=== PATIENT | male | born 1960 | race Caucasian/White ===

== ENCOUNTER 2023-05-03 12:06 | Emergency (ER) | payer OTHER, SELFPAY ==
--- NOTE | ~2023-05-03 | US_ITS ---
EXAMINATION: US VENOUS WITH DOPPLER UPPER EXTREMITY, LEFT CLINICAL INFORMATION: Posterior left upper arm pain COMPARISON: None available. TECHNIQUE: Ultrasound of the upper extremity is performed using compression sonography and color and pulse Doppler flow with assessment of augmentation of flow. There is also imaging and Doppler assessment of the jugular and subclavian veins. Spectral analysis with color-flow imaging is performed. FINDINGS: Respiratory variation and normal compression are noted throughout the upper extremity including the brachial, basilic, cephalic and radial and ulnar veins. There is normal flow in the internal jugular, subclavian and axillary veins. There is no visible deep or superficial thrombophlebitis. Ultrasound of the area of concern indicated by the patient in the left outer/posterior upper arm demonstrates no sonographic abnormality. US/US venous duplex UE LT IMPRESSION: No DVT demonstrated in the left upper extremity.
--- NOTE | 2023-05-03 12:16 | ED_ITS ---
HPI - General Adult General Chief complaint: Extremity Injury, Upper Stated complaint: Pain left arm Time Seen by Provider: 05/03/23 16:01 Source: patient Mode of arrival: ambulatory Limitations: no limitations History of Present Illness HPI narrative: Patient is a 62-year-old male presenting to the ED with complaint of deep pain to localized area of posterior left upper arm since this morning. States he is concerned for a blood clot. States it feels like somebody gave me a shot. Denies any new weakness, numbness, or tingling to arm or hand. Denies any chest pain, palpitations, dyspnea. Denies any known injury. MD complaint: left upper arm pain Onset (ago): hour(s) Location: left and upper extremity Radiation: non-radiation Severity: moderate Quality: stabbing Pain Consistency: constant Relieving factors: none Exacerbating factors: none Associated symptoms: denies other symptoms Treatments prior to arrival: none Related Data Allergies Allergy/AdvReac Type Severity Reaction Status Date / Time No Known Allergies Allergy Verified 05/03/23 12:16 Review of Systems 2 Review of Systems: As per HPI. Yes all other systems are reviewed and are negative Constitutional: Constitutional: Reports as per HPI [facility] Social History Social History Advance Directives: No Physical Exam ED Vital Signs: Vital Signs - 24 hr 05/03/23 12:17 Temperature 98 F Pulse Rate 94 Respiratory Rate 19 Blood Pressure 142/102 H Pulse Oximetry 96 Oxygen Delivery Method Room Air BMI result Body Mass Index 24.4 Vital signs have been reviewed and appear to be correct. Blood pressure elevated. Heart rate normal. Respiratory rate normal. Temperature normal. Oxygen saturation normal. Const General: cooperative, healthy appearing and no acute distress Orientation/consciousness: oriented to person, oriented to place, oriented to time and patient oriented x3 Limitations: no limitations HENMT Head: Yes normocephalic and Yes atraumatic Ears: external ears normal General nose exam: Normal external nose present Face and sinus: Yes face symmetric Mouth: oropharynx normal and moist mucous membranes Throat: Yes uvula midline Eyes Pupils: Equal, round and reactive pupils present Neck Neck: Yes normal visual inspection and Yes supple Resp Effort & Inspection: normal respiratory effort and able to speak in complete sentences Auscultation: clear to auscultation bilaterally Cardio Rate: regular rate Rhythm: regular rhythm Heart sounds: S1 normal heart sound present and S2 normal heart sound present GI Palpation (GI): Soft to palpation and nontender Auscultation: normoactive bowel sounds General: Yes no CVA tenderness Back/Spine/Pelvis Back: no CVA tenderness Skin General skin exam: elasticity normal and turgor normal Neuro General: oriented to person, oriented to place, oriented to time, patient oriented x3, moves all extremities, no focal motor deficits and CN's II-XI intact bilaterally Cranial nerves: Yes Equal, round and reactive pupils present Cognition (Neuro): normal cognition Extrem General: Yes full ROM, Yes no pedal edema and Yes no calf tenderness Left upper extremity: normal to inspection, full ROM, normal capillary refill and shoulder/upper arm Details: inspection abnormal, axillary nerve sensory function normal and normal ROM; no tenderness, no swelling, no ecchymosis and no unsual warmth Psych Mental Status: mental status grossly normal Affect: normal affect Thought process: Normal thought process present Medical Decision Making Medical Decision Making [facility] Narrative: Patient is a 62-year-old male presenting to the ED with complaint of deep pain to posterior left upper arm since this morning. On exam patient is awake, A+Ox3, VS WNL, afebrile, normal neurological exam without focal deficits, physical exam findings as above. Given reported symptoms and physical exam findings, initial differential includes DVT, contusion, muscle strain. Labs unremarkable. Ultrasound notable for no DVT. My interpretation is in agreement with the radiologist's interpretation. Results discussed with patient and all questions answered. Return precautions discussed. Instructed patient to follow up with PCP. Patient verbalized understanding of and agreement with plan. Differential Diagnosis Differential Diagnoses: The differential diagnosis associated with the presentation includes As per [facility]. Lab Data [facility] Lab Attestation statement: I reviewed the patient's lab results. As per [facility] 05/03/23 12:40 05/03/23 12:40 Labs: Lab Results 05/03/23 Range/Units 12:40 WBC 5.0 (4.8-10.8) X10*3/uL RBC 5.02 (4.60-5.80) X10*6/uL Hgb 13.4 L (14.0-18.0) g/dl Hct 42.8 (42.0-52.0) % MCV 85.3 (80.0-98.0) fL MCH 26.7 L (27.0-33.0) pg MCHC 31.3 (31.0-36.0) g/dl RDW 16.7 H (11.0-16.0) % Plt Count 259 (160-400) X10*3/uL MPV 10.1 (9.4-12.4) fL Immature Gran % (Auto) 0.4 (0.0-0.4) % Neut % (Auto) 55.5 (45-73) % Lymph % (Auto) 30.9 (20-40) % [place] % (Auto) 10.4 (2-11) % Eos % (Auto) 1.6 (0-4) % Baso % (Auto) 1.2 (0-2) % Lymph # (Auto) 1.6 (1.2-4.9) X10*3/uL [place] # (Auto) 0.5 (0.1-1.2) X10*3/uL Eos # (Auto) 0.1 (0.0-0.4) X10*3/uL Baso # (Auto) 0.1 (0.0-0.2) X10*3/uL Abs Immat Gran (auto) 0.02 (0.00-0.03) X10*3/uL Absolute Neuts (auto) 2.8 (2.0-8.3) x10*3/uL Absolute Nucleated RBC 0.000 (0.0-0.012) X10*3/uL Nucleated RBC % (auto) 0.0 (0.0-0.2) /100WBC PT 12.2 (11.1-13.3) SEC INR 1.0 (0.9-1.1) Sodium 141 (135-145) mmol/L Potassium 4.8 (3.3-5.1) mmol/L Chloride 106 (96-108) mmol/L Carbon Dioxide 26 (22-29) mmol/L Anion Gap 14 (12-20) BUN 13 (9-16) mg/dL Creatinine 1.08 (0.5-1.4) mg/dL Estim Creat Clear Calc 72.7 Estimated GFR > 60 Random Glucose 87 (60-115) mg/dL Calcium 9.7 (8.4-10.2) mg/dL Total Bilirubin 0.5 (0.0-1.0) mg/dL AST 35 (5-37) U/L ALT 46 H (0-40) U/L Alkaline Phosphatase 86 (39-117) U/L Total Protein 7.6 (6.5-8.0) g/dL Albumin 4.2 (3.5-5.0) g/dL Independent Interpretation I performed an independent interpretation of an: Ultrasound Interpretation: No left upper arm DVT Radiology Impression Discussion of test interpretation with radiology: I have reviewed the radiologist's reading. Radiologist Impression: US/US venous duplex UE LT IMPRESSION: No DVT demonstrated in the left upper extremity. External Record Review External record reviewed: Inpatient record, Office record and Outpatient record Discharge Plan Discharge Clinical Impression: Left upper arm pain Patient Disposition: Home, Self-Care Instructions: Arm Pain (ED) Additional Instructions: You were evaluated in the emergency department today for pain to the back of your left upper arm. Your ultrasound did not show evidence of a blood clot. Your labs were normal. We recommend you take 600 mg ibuprofen or 650 mg of Tylenol every 6 hours as needed for pain. Please follow-up with your primary care provider this week. Return to the emergency department if you develop increased swelling, worsening pain, change of color to your arm, new weakness, numbness, tingling or any other concerning symptoms.
[2023-05-03 12:17] VITALS: BP 142/102; PULSE 94; RESP 19; TEMP 36.6; O2SAT 96; BMI 24.4
[2023-05-03 12:46] LABS: MANUAL DIFF FLAG NO
[2023-05-03 12:49] LABS: Basophils Absolute Auto 0.1 X10*3/uL (0.0-0.2); Basophils Percent Auto 1.2 % (0-2); Eosinophils Absolute Auto 0.1 X10*3/uL (0.0-0.4); Eosinophils Percent Auto 1.6 % (0-4); Hematocrit 42.8 % (42.0-52.0); Hemoglobin 13.4 g/dl (14.0-18.0); Imm Gran Abs Auto 0.02 X10*3/uL (0.00-0.03); Imm Gran Pct Auto 0.4 % (0.0-0.4); Lymphocytes Absolute Auto 1.6 X10*3/uL (1.2-4.9); Lymphocytes Percent Auto 30.9 % (20-40); Mean Corpuscular HGB Conc 31.3 g/dl (31.0-36.0); Mean Corpuscular Hemoglobin 26.7 pg (27.0-33.0); Mean Corpuscular Volume 85.3 fL (80.0-98.0); Mean Platelet Volume 10.1 fL (9.4-12.4); Monocytes Absolute Auto 0.5 X10*3/uL (0.1-1.2); Monocytes Percent Auto 10.4 % (2-11); Neutrophils Absolute Auto 2.8 x10*3/uL (2.0-8.3); Neutrophils Percent Auto 55.5 % (45-73); Platelet Count 259 X10*3/uL (160-400); Red Blood Count 5.02 X10*6/uL (4.60-5.80); Red Cell Distribution Width 16.7 % (11.0-16.0)
[2023-05-03 12:59] LABS: Prothrombin Time 12.2 SEC (11.1-13.3)
[2023-05-03 13:04] LABS: Alanine Aminotransferase 46 U/L (0-40); Albumin Level 4.2 g/dL (3.5-5.0); Alkaline Phosphatase 86 U/L (39-117); Anion Gap 14 (12-20); Aspartate Amino Transferase 35 U/L (5-37); Bilirubin Total 0.5 mg/dL (0.0-1.0); Blood Urea Nitrogen 13 mg/dL (9-16); Calcium 9.7 mg/dL (8.4-10.2); Carbon Dioxide 26 mmol/L (22-29); Chloride 106 mmol/L (96-108); Creatinine Clr Calc Pharmacy 72.7; Estimated Glomerular Filt Rate > 60; Glucose Random 87 mg/dL (60-115); Potassium 4.8 mmol/L (3.3-5.1); Sodium 141 mmol/L (135-145); Total Protein 7.6 g/dL (6.5-8.0)
== END 2023-05-03 16:34 | disposition home or self-care (01) ==
PROVIDERS: Registered Nurse Emergency; Emergency Provider Emergency Medicine; PCP Internal Medicine
DX: M79.622 Pain in left upper arm (principal)
CPT/HCPCS: 36415; 80053; 85025; 85610; 93971; 99282; 99284

== ENCOUNTER 2023-06-01 14:01 | Outpatient (AMB) | payer OTHER, SELFPAY ==
[2023-06-01 14:03] VITALS: BP 132/68; PULSE 72; O2SAT 97; BMI 24.8
--- NOTE | 2023-06-01 14:03 | MHC.OFFVIS ---
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 Machine Bobbin Winder: Machine Bobbin Winder offered & declined Accompanied by: Self / Same As Patient Allergies celery Allergy (Severe, Uncoded 06/01/23 14:11) Anaphylaxis kyrgyz grapes Allergy (Severe, Uncoded 06/01/23 14:11) Anaphylaxis Medication List - Last Reconciled 06/01/23 by Yanely Jensen LPN albuterol sulfate 90 mcg/actuation 1 inh inhalation Q4-6H PRN allopurinol 300 mg PO DAILY amlodipine 2.5 mg PO DAILY epinephrine (EpiPen 2-Alan) 0.3 mg IM Q4H PRN irbesartan 300 mg PO DAILY pantoprazole 40 mg PO DAILY propranolol 10 mg PO .1x daily PRN testosterone 1 packet transdermal DAILY HPI chronic cough HPI Details Jah is a pleasant 62 year old male, former smoker with less than 10 pack year history, with underlying chronic cough, seasonal allergies and post nasal drip. He was referred by PCP for pulmonary evaluation as prior or director is not in-network. He reports symptoms started after RSV and COVID with chronic productive cough and wheezing, treated with levaquin and prednisone as well as started on Trelegy x 1 month by pulmonary. Patient denies any notable change in cough other than resolution of wheezing. CT chest from february with mild ground glass opacity of right lung, report below. He continues to report constant throat clearing. Denies dyspnea or chest tightness. He denies prior history of asthma. He reports significant seasonal allergies, on allergen immunotherapy many years ago. Uses claritin and flonase with suboptimal effect. He denies occupational exposures. [facility] Social History (Updated 06/01/23 @ 14:13 by Yanely Jensen LPN) Patient Tobacco Use Status: Former Tobacco user Tobacco use type: Cigarette Cigarette Packs Per Day: 1 Years Smoked: 10 Smoked in Last 30 Days: No Review of Systems Const Denies chills, Denies excessive sweating, Denies fever(s), Denies headache(s) and Denies night sweats Eyes Denies dry eyes, Denies irritation and Denies itchy eyes ENT Reports Normal hearing present, Denies headache(s), Denies nasal congestion, Denies nasal discharge and Denies sore throat Card Denies chest pain, Denies chest pain at rest, Denies chest pain with activity, Denies claudication, Denies leg edema, Denies dyspnea, Denies dyspnea on exertion, Denies orthopnea and Denies paroxysmal nocturnal dyspnea Resp Denies chest congestion, Denies pain on inspiration, Denies pain with cough, Denies dyspnea, Denies dyspnea on exertion, Denies stridor and Denies wheezing Musc Denies myalgias Neuro Reports Normal hearing present and Denies headache(s) Endo Denies excessive sweating Mario/Lymph Denies lymphadenopathy Aller/Immun Denies itchy eyes, Denies seasonal rhinorrhea and Denies wheezing Physical Exam Vital Signs: Last Vital Signs Pulse 72 06/01/23 14:03 BP 132/68 06/01/23 14:03 Pulse Ox 97 06/01/23 14:03 Oxygen Delivery Method Room Air 06/01/23 14:03 BMI result Body Mass Index 24.8 Const General: cooperative, healthy appearing, comfortable, no acute distress, well developed and alert Orientation/consciousness: patient oriented x3 Limitations: no limitations HEENT Head: Yes normal to inspection, Yes normocephalic and Yes atraumatic Ears: hearing grossly normal bilaterally and external ears normal Eyes General: appearance normal, both eyes and all related structures Eyelids: Yes eyelids normal Sclerae: sclerae normal EOM: EOMs intact bilaterally Neck Neck: Yes normal visual inspection and Yes no lymphadenopathy Lymphatic: no lymphadenopathy noted Chest Chest palpation & inspection: normal inspection of the chest Resp Other: persistent throat clearing throughout visit Effort & Inspection: normal respiratory effort, able to speak in complete sentences, no audible wheezes, no cough, no stridor, not tachypneic, no tripod positioning and no use of accessory muscles Auscultation: clear to auscultation bilaterally Cardio Jugular venous distension: no JVD Rate: regular rate Rhythm: regular rhythm Skin Other: warm, dry General skin exam: no rashes or lesions noted Neuro General: patient oriented x3 Cranial nerves: Yes Normal hearing present Cognition (Neuro): normal cognition Gait exam (Neuro): Normal gait present Extrem General: Yes normal to inspection, Yes capillary refill normal, Yes no clubbing, cyanosis or edema and Yes no pedal edema Psych Appearance: grossly normal and well kempt Speech and movement: Normal speech and movement present and Clear speech present Affect: normal affect Attitude: cooperative Thought process: Normal thought process present Thought content: Normal thought content present Insight: Good insight present (Psych) Judgement: Good judgement present (Psych) Results Reviewed Results Reviewed: Assessment & Plan Assessment & Plan (1) Chronic cough: Code(s): R05.3 - Chronic cough (2) Post-nasal drip: Code(s): R09.82 - Postnasal drip (3) Environmental allergies: Code(s): Z91.09 - Other allergy status, other than to drugs and biological substances (4) Multiple pulmonary nodules: Code(s): R91.8 - Other nonspecific abnormal finding of lung field Plan Jah's symptoms at this time are likely related to underlying environmental allergies and post nasal drip contributing to chronic cough. Cough with clear sputum without fevers, so infectious etiologies are less likely. Will trial ipratropium. Unfortunately, patient is leaving next week for 6 months to [place] so unable to order testing in the near future. Will order repeat chest CT to assess nodules, PFT and RAST when he returns. All questions were answered and patient is in agreement of plan. Will follow up when patient returns. Orders: Orders CT chest wo IV con 6 Months R91.1 - Solitary pulmonary nodule Complete Blood Count Auto Diff Today R05.3 - Chronic cough, Z91.09 - Other allergy status, other than to drugs and biological substances Resp Allergy Profile Region I Today Z91.09 - Other allergy status, other than to drugs and biological substances PFT pulmonary function test 6 Months R05.3 - Chronic cough Immunoglobulin E Today Z91.09 - Other allergy status, other than to drugs and biological substances Medications: New ipratropium bromide administer into each nostril 2 sprays intranasal BID 30 mL 3RF Coding Level of Care Code New Pt Level 4 (20774) Diagnoses Chronic cough R05.3 Post-nasal drip R09.82 Environmental allergies Z91.09 Multiple pulmonary nodules R91.8
== END 2023-06-01 14:38 | disposition home or self-care (01) ==
PROVIDERS: PCP Internal Medicine; Referring Provider Internal Medicine; Visit Provider Nurse Practitioner Family
DX: R05.3 Chronic cough (principal); R09.82 Postnasal drip; Z91.09 Other allergy status, other than to drugs and biological substances; R91.8 Other nonspecific abnormal finding of lung field
CPT/HCPCS: 99204

== ENCOUNTER → 2023-06-01 14:01 | Outpatient (BNVA) | payer OTHER, SELFPAY | PROVIDERS: PCP Internal Medicine; Referring Provider Internal Medicine; Visit Provider Nurse Practitioner Family ==

== ENCOUNTER 2023-12-24 07:36 | Outpatient (REF) | payer OTHER, SELFPAY ==
--- NOTE | ~2023-12-24 | CT_ITS ---
EXAMINATION: CT CHEST WITHOUT CONTRAST CLINICAL INFORMATION: Solitary pulmonary nodule. COMPARISON: No prior available. TECHNIQUE: Multidetector volumetric CT imaging of the chest was done. Axial MIP volume rendering provided. Sagittal and coronal reformatted images were obtained. This CT examination was performed using dose optimization techniques as appropriate, variously including the following: *Automated exposure control *Adjustment of mA and/or kV according to patient size (this includes techniques or standardized protocols for targeted exams where dose is matched to indication/reason for exam; i.e. extremities or head) *Use of iterative reconstruction technique DLP: 134 mGy-cm FINDINGS: PULMONARY NODULES: -Average diameter 4 mm nodule abutting the minor fissure in the inferior most right upper lobe (series 7, image 280), most likely an incidental intrapulmonary lymph node. -No additional nodules seen. -No new or enlarging nodule. LUNGS: -Lungs appear clear bilaterally. No abnormal consolidative opacities or groundglass opacities. -No pleural effusion or pleural mass -Small airways normal. -Central airways patent and normal. MEDIASTINUM: -There is a moderate to large sized paraesophageal hiatus hernia. This contains the majority of the fundus of the stomach. -Mediastinum is otherwise normal. CORONARY ARTERY CALCIFICATION: None visualized on this study. PLEURA: There is no pleural effusion. No pleural mass or thickening. AXILLA/CHEST WALL: No masses or lymphadenopathy. UPPER ABDOMEN: -Mild fatty infiltration of liver. -Moderate to large paraesophageal hiatus hernia. -Mild nonspecific perirenal stranding. OSSEOUS STRUCTURES: Unremarkable. CT/CT chest wo IV con IMPRESSION: 1. No prior available for comparison. 2. Inferior right upper lobe 4 mm average diameter nodule subjacent to the minor fissure, most likely an intrapulmonary lymph node. No additional or suspicious pulmonary nodules. Correlation with older exams recommended. 3. No active pulmonary disease. 4. Moderate to large sized paraesophageal hiatus hernia. Otherwise normal mediastinal structures. 5.. Fatty infiltration of the liver. Fleischner guidelines were followed. Electronically signed by: Tucker Rodrigues MD 02/20/2024 02:39 PM [facility]
== END 2023-12-24 07:37 | disposition home or self-care (01) ==
LOC: HO.CT 07:36
PROVIDERS: PCP Internal Medicine; Visit Provider Nurse Practitioner Family
DX: R91.1 Solitary pulmonary nodule (principal)
CPT/HCPCS: 71250

== ENCOUNTER → 2023-12-24 07:41 | Outpatient (BNV) | payer OTHER, SELFPAY | PROVIDERS: PCP Internal Medicine; Visit Provider Radiology Diagnostic Radiology | DX: R91.1 Solitary pulmonary nodule (principal) | CPT/HCPCS: 71250 ==

== ENCOUNTER 2023-12-28 11:29 | Outpatient (REF) | payer OTHER, SELFPAY ==
--- NOTE | ~2023-12-28 | XR_ITS ---
EXAMINATION: XR SHOULDER, RIGHT CLINICAL INFORMATION: Right shoulder pain COMPARISON: None available. TECHNIQUE: AP external rotation, Grashey, scapular Y, and axillary views of the right shoulder. FINDINGS: No fracture or malalignment. No significant degenerative findings. Incidental small bone island within the humeral head and distal scapula. No suspicious soft tissue calcification. XR/XR shoulder RT min 2V IMPRESSION: Normal right shoulder. Electronically signed by: Kirk Beckham MD 12/28/2023 03:59 PM EDT
== END 2023-12-28 11:30 | disposition home or self-care (01) ==
LOC: HO.XRAY 11:29
PROVIDERS: Visit Provider Internal Medicine
DX: M25.511 Pain in right shoulder (principal)
CPT/HCPCS: 73030

== ENCOUNTER 2024-01-17 10:52 | Outpatient (AMB) | payer OTHER, SELFPAY ==
--- NOTE | 2024-01-17 11:10 | A.OFFVIS_ITS ---
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 Patient reports his pain has been present for about 2 years after having a covid injection. He had received electrical pulse therapy, which did not help. After some time his pain improved. His pain has no returned and is making snapping noises. His pain radiates from his shoulder to his elbow. He has pain with ROM. Denies injury. 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 He has not had any injury however he believes his pain started after having a covid injection. He reports he has tried electric pulse therapy that provided him relief for about 3 months however his pain returned. He currently states he has pain in his shoulder that radiates down to his elbow. His pain is aggravated with ROM, reaching and lifting items. He also reports hearing snapping noises from his shoulder. He denies any numbness or tingling. 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 Tenderness over the bicipital groove and along the deltoid region of the shoulder. Forward flexion to 175, external rotation to 90, internal rotation to S1. 5/5 RTC strength. Positive O?Briens. NVI. Results Reviewed Results Reviewed: XR shoulder RT min 2V IMPRESSION: Normal right shoulder. Assessment & Plan Assessment & Plan (1) Biceps tendonitis on right: Code(s): M75.21 - Bicipital tendinitis, right shoulder Category: Medical Plan We discussed options which include PT, NSAIDs and injections. The patient will defer on the injection today and proceed with PT and NSAIDs. He was sent to pain management for evaluation and bicep tendon injection under fluoroscopy. If he continues to have pain he can return to office to meet with Dr. Goldsmith to discuss further treatment options. He was instructed to bring a copy of MRI disc to the appointment. Orders: Orders PT Evaluation and Treatment Today M75.21 - Bicipital tendinitis, right shoulder Referrals Pain Management Referral M75.21 - Bicipital tendinitis, right shoulder Patient Instructions: Scribed for Maritza Gonsales PA-C, by Ascencion Monae medical assistant prn, on 01/17/2024 at 11:00 AM EST.? I, Maritza Gonsales PA-C, have personally reviewed and agree with the information entered by the scribe. Coding Level of Care Code New Pt Level 3 (31464) Complex EM visit Add On G2211 Diagnoses Biceps tendonitis on right M75.21
[2024-01-17 11:20] VITALS: BMI 24.8
== END 2024-01-17 14:32 | disposition home or self-care (01) ==
LOC: HO.HOS 10:53
PROVIDERS: PCP Internal Medicine; Visit Provider Physician Assistant
DX: M75.21 Bicipital tendinitis, right shoulder (principal)
CPT/HCPCS: 99203

== ENCOUNTER → 2024-01-17 10:52 | Outpatient (BNVA) | payer OTHER, SELFPAY | PROVIDERS: PCP Internal Medicine; Visit Provider Physician Assistant ==

== ENCOUNTER 2024-01-25 09:37 | Outpatient (REF) | payer OTHER, SELFPAY ==
--- NOTE | 2024-01-25 09:44 | PFT_ITS ---
Flows: FEV1: 107 % of predicted at 3.66 L FVC: 101 % of predicted at 4.48 L FEV1/FVC: 82 % Bronchodilator response: No bronchodilator testing performed Volumes: Total lung capacity: 84 % of predicted at 5.88 L Residual volume: 64 % of predicted at 1.40 L Slow vital capacity: 92 % of predicted at 4.48 L Expiratory reserve volume: 58 % of predicted at 0.73 L Diffusion capacity: Normal Impression: No obstructive or restrictive ventilatory defect. Bronchodilator testing not performed. MTDD
== END 2024-01-25 09:38 | disposition home or self-care (01) ==
LOC: HO.RESP 09:37
PROVIDERS: PCP Internal Medicine; Visit Provider Nurse Practitioner Family
DX: R05.3 Chronic cough (principal)
CPT/HCPCS: 94010; 94640; 94727; 94729

== ENCOUNTER → 2024-01-25 09:44 | Outpatient (BNV) | payer OTHER, SELFPAY | PROVIDERS: PCP Internal Medicine; Visit Provider Internal Medicine Pulmonary Disease | DX: R05.3 Chronic cough (principal) | CPT/HCPCS: 94060; 94727; 94729 ==

== ENCOUNTER 2024-02-01 08:52 | Outpatient (RCR) | payer OTHER, SELFPAY ==
--- NOTE | 2024-02-01 09:52 | MHC.PT.EP ---
[facility] [place] Office [place] Office [place] Office [address] Gema Haider [address] [phone] F: [phone] F: [phone] F: [phone] F: [phone] Physical Therapy Plan of Care Date of Evaluation: 02/01/24 Date of Surgery: Diagnosis: R bicipital tendonitis Assessment: 63 y/o R-hand dominant male referred to PT wtih bicipital tendonitis. S/s consistent with referring and dx and ?supraspinatus tendinopathy as well resulting in pain and difficulty with reaching, lifting coffee cup, reaching behind back and lifting. Examination shows TTP biceps/supraspiantus tendons, rounded forward posture, decreased thoracic mobility, decreased R shoulder ROM, decreased R shoulder strength. Recommend PT 2x/week for 5 weeks however Pt would like to attend only this visit and discussed keeping chart open for 30 days in case he wants to f/u with HEP progression or has questions. Distributed extensive HEP and reviewed importance of progressing to tolerance. Frequency and Duration: The patient will be seen Short Term Goals: develop HEP = met Cell Pourer Goals: Keep chart open for 30 days in case pt wants to f/u with exercise progression or has questions Treatment Plan: Modalities to reduce pain, spasms and effusion. Manual therapy to restore motion and function. Therapeutic exercise to improve strength and flexibility. Neuromuscular re-education for posture and balance. Therapeutic activities to return to functional activities of daily living. Electronically signed by: Carlee Mclean PT Please sign and return to therapist. Thank you for your referral.
--- NOTE | 2024-03-07 07:31 | MHC.PT.DC ---
[facility] [place] Office [place] Office [place] Office [address] Gema Haider [address] [phone] F: [phone] F: [phone] F: [phone] F: [phone] Physical Therapy Discharge Report Diagnosis: R bicipital tendonitis Date of Surgery: Date of Evaluation: 02/01/24 Date of Discharge: 03/07/24 Treatments to Date: 1 Cancellations to Date: 0 No Shows to Date: 0 Discharge Status: Independent with HEP Discharge Summary: Pt only wanted to attend initial evaluation and perform HEP independently. Kept chart open for 30 days in case he had questions or wanted to progress. At this time, will now close chart Electronically signed by: Carlee Mclean PT Please sign and return to therapist. Thank you for your referral.
== END 2024-03-07 07:31 | disposition home or self-care (01) ==
LOC: HO.PTCHIC 08:52
PROVIDERS: PCP Internal Medicine; Visit Provider Physician Assistant
DX: M75.21 Bicipital tendinitis, right shoulder (principal)
CPT/HCPCS: 97110; 97161

== ENCOUNTER 2024-03-04 15:05 | Outpatient (AMB) | payer OTHER, SELFPAY ==
--- NOTE | 2024-03-04 14:16 | A.OFFVIS_ITS ---
Vital Signs 03/04/24 15:15 Height 5 ft 9 in Weight 173 lb BMI 25.5 BP 126/88 Blood Pressure Location Rt brachial Position Sitting Pulse 97 Pulse Source Pulse Oximeter Pulse Oximetry (%) 95 Oxygen Delivery Method Room Air Intake Visit Reasons: chronic cough/ CT FU Allergies celery Allergy (Severe, Uncoded 03/04/24 15:17) Anaphylaxis bermudian grapes Allergy (Severe, Uncoded 03/04/24 15:17) Anaphylaxis HPI HPI chronic cough/ CT FU: Details: Jah is a pleasant 63 year old male, former smoker with less than 10 pack year history, with underlying chronic cough, seasonal allergies and post nasal drip. He was initiallyy referred by PCP for pulmonary evaluation for persistent dry cough, occasionally productive since randy RSV and COVID. He has been trialed on trelelgy, prednisone and levaquin with minimal change in symptoms. [place] and presents today to review chest CT/PFT. He continues with persistent throat clearing, post nasal drip and chronic cough. [facility] Social History Patient Tobacco Use Status: Former Tobacco user Tobacco use type: Cigarette Cigarette Packs Per Day: 1 Years Smoked: 10 Current occupational status: employed Current occupation: server software engineer, right hand dominant Review of Systems Const Denies chills, Denies excessive sweating, Denies fever(s), Denies headache(s) and Denies night sweats Eyes Denies dry eyes and Denies irritation ENT Reports Normal hearing present, Denies headache(s), Denies nasal congestion, Denies nasal discharge and Denies sore throat Card Denies chest pain, Denies chest pain at rest, Denies chest pain with activity, Denies claudication, Denies leg edema, Denies dyspnea, Denies dyspnea on exertion, Denies orthopnea and Denies paroxysmal nocturnal dyspnea Resp Denies chest congestion, Reports cough, Denies hemoptysis, Denies pain on inspiration, Denies pain with cough, Denies dyspnea, Denies dyspnea on exertion, Denies stridor and Denies wheezing Musc Denies myalgias Neuro Reports Normal hearing present and Denies headache(s) Endo Denies excessive sweating Mario/Lymph Denies lymphadenopathy Aller/Immun Denies seasonal rhinorrhea and Denies wheezing Physical Exam Vital Signs: Last Vital Signs Pulse 97 03/04/24 15:15 BP 126/88 03/04/24 15:15 Pulse Ox 95 03/04/24 15:15 Oxygen Delivery Method Room Air 03/04/24 15:15 BMI result Body Mass Index 25.5 Const General: cooperative, healthy appearing, comfortable, no acute distress, well developed and alert Orientation/consciousness: patient oriented x3 Limitations: no limitations HEENT Head: Yes normal to inspection, Yes normocephalic and Yes atraumatic Ears: hearing grossly normal bilaterally and external ears normal Eyes General: appearance normal, both eyes and all related structures Eyelids: Yes eyelids normal Sclerae: sclerae normal EOM: EOMs intact bilaterally Neck Neck: Yes normal visual inspection and Yes no lymphadenopathy Lymphatic: no lymphadenopathy noted Chest Chest palpation & inspection: normal inspection of the chest Resp Other: persistent throat clearing throughout visit Effort & Inspection: normal respiratory effort, able to speak in complete sen tences, no audible wheezes, no cough, no stridor, not tachypneic, no tripod positioning and no use of accessory muscles Auscultation: clear to auscultation bilaterally Cardio Jugular venous distension: no JVD Rate: regular rate Rhythm: regular rhythm Skin Other: warm, dry General skin exam: no rashes or lesions noted Neuro General: patient oriented x3 Cranial nerves: Yes Normal hearing present Cognition (Neuro): normal cognition Gait exam (Neuro): Normal gait present Extrem General: Yes normal to inspection, Yes capillary refill normal, Yes no clubbing, cyanosis or edema and Yes no pedal edema Psych Appearance: grossly normal and well kempt Speech and movement: Normal speech and movement present and Clear speech present Affect: normal affect Attitude: cooperative Thought process: Normal thought process present Thought content: Normal thought content present Insight: Good insight present (Psych) Judgement: Good judgement present (Psych) Results Reviewed Results Reviewed: [address] [address] [address] Scan Report Signed Patient: Jah Christianson MR#: [id number] : 1960 Acct:[id number] Age/Sex: 63 / M ADM Date: 12/24/23 Loc: HO.CT Attending Dr: Claudia Haynes NP Ordering Physician: Claudia Haynes NP Date of Service: 12/24/23 Procedure(s): CT chest wo IV con Accession Number(s): [id number] cc: Jah Storey MD; Claudia Haynes NP~ EXAMINATION: CT CHEST WITHOUT CONTRAST CLINICAL INFORMATION: Solitary pulmonary nodule. COMPARISON: No prior available. TECHNIQUE: Multidetector volumetric CT imaging of the chest was done. Axial MIP volume rendering provided. Sagittal and coronal reformatted images were obtained. This CT examination was performed using dose optimization techniques as appropriate, variously including the following: *Automated exposure control *Adjustment of mA and/or kV according to patient size (this includes techniques or standardized protocols for targeted exams where dose is matched to indication/reason for exam; i.e. extremities or head) *Use of iterative reconstruction technique DLP: 134 mGy-cm FINDINGS: PULMONARY NODULES: -Average diameter 4 mm nodule abutting the minor fissure in the inferior most right upper lobe (series 7, image 280), most likely an incidental intrapulmonary lymph node. -No additional nodules seen. -No new or enlarging nodule. LUNGS: -Lungs appear clear bilaterally. No abnormal consolidative opacities or groundglass opacities. -No pleural effusion or pleural mass -Small airways normal. -Central airways patent and normal. MEDIASTINUM: -There is a moderate to large sized paraesophageal hiatus hernia. This contains the majority of the fundus of the stomach. -Mediastinum is otherwise normal. CORONARY ARTERY CALCIFICATION: None visualized on this study. PLEURA: There is no pleural effusion. No pleural mass or thickening. AXILLA/CHEST WALL: No masses or lymphadenopathy. UPPER ABDOMEN: -Mild fatty infiltration of liver. -Moderate to large paraesophageal hiatus hernia. -Mild nonspecific perirenal stranding. OSSEOUS STRUCTURES: Unremarkable. CT/CT chest wo IV con IMPRESSION: 1. No prior available for comparison. 2. Inferior right upper lobe 4 mm average diameter nodule subjacent to the minor fissure, most likely an intrapulmonary lymph node. No additional or suspicious pulmonary nodules. Correlation with older exams recommended. 3. No active pulmonary disease. 4. Moderate to large sized paraesophageal hiatus hernia. Otherwise normal mediastinal structures. 5.. Fatty infiltration of the liver. Fleischner guidelines were followed. 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 Assessment & Plan (1) Chronic cough: Code(s): R05.3 - Chronic cough Category: Medical (2) Post-nasal drip: Code(s): R09.82 - Postnasal drip Category: Medical (3) Environmental allergies: Code(s): Z91.09 - Other allergy status, other than to drugs and biological substances Category: Medical (4) Multiple pulmonary nodules: Code(s): R91.8 - Other nonspecific abnormal finding of lung field Category: Medical (5) Paraesophageal hernia: Code(s): K44.9 - Diaphragmatic hernia without obstruction or gangrene Category: Medical Plan Reviewed PFT which revealed normal spirometry, lung volumes normal and normal DLCO. CT chest revealed moderate to large paraesophageal hernia with multiple scattered pulmonary nodules. Will repeat chest CT in one year to assess stability, if no changes then no need for further imaging. In regards to hernia, he is going to undergo repair in March in [place], which may be contributing to cough. He currently denies any reflux symptoms. He continues to report significant post nasal drip and seasonal allergies, trialed ipratriopium nasal spray with minimal effect, Encouraged patient to trial antihistamine. Consider allergy referral. All questions were answered and patient is in agreement of plan. Will follow up after patient undergoes hernia repair or sooner if needed. Orders: Orders CT chest wo IV con 10 Months R91.8 - Other nonspecific abnormal finding of lung field Coding Level of Care Code Est Pt Level 4 (34283) Diagnoses Chronic cough R05.3 Post-nasal drip R09.82 Environmental allergies Z91.09 Multiple pulmonary nodules R91.8 Paraesophageal hernia K44.9
[2024-03-04 15:15] VITALS: BP 126/88; PULSE 97; O2SAT 95; BMI 25.5
== END 2024-03-04 15:44 | disposition home or self-care (01) ==
PROVIDERS: PCP Internal Medicine; Visit Provider Nurse Practitioner Family
DX: R05.3 Chronic cough (principal); R09.82 Postnasal drip; Z91.09 Other allergy status, other than to drugs and biological substances; R91.8 Other nonspecific abnormal finding of lung field; K44.9 Diaphragmatic hernia without obstruction or gangrene
CPT/HCPCS: 99214

== ENCOUNTER 2024-04-20 19:03 | Emergency (ER) | payer OTHER, SELFPAY ==
--- NOTE | ~2024-04-20 | CT_ITS ---
CLINICAL HISTORY: recent hiatal hernia repair pleuritic chest pain CT angiography chest with contrast. 3D Postprocessing. Comparison: CT/MS/SR - CT CHEST WO IV CON - 12/24/23 07:57 EDT Findings: Moderately severe cardiomegaly. The thoracic aorta is dilated in caliber in the ascending portion measuring 4.0 cm Main pulmonary artery measures 3.1 cm, mildly enlarged. No pulmonary artery embolus. Interval repair of hiatal hernia. Bibasilar atelectasis. Trace bilateral pleural effusions. There are trace bilateral pneumothoraces, series 8, image 46 and series 8, image 52. The upper abdomen is unremarkable. The bones are intact. IMPRESSION: 1. No pulmonary embolus. 2. Trace bilateral pneumothoraces. Trace bilateral pleural effusions. Bibasilar atelectasis. 3. Dilated ascending thoracic aorta measuring 4.0 cm in diameter. 4. Enlarged pulmonary artery, a finding that can be associated with pulmonary artery hypertension. This document has been electronically signed by: Grupo Forde MD on 04/20/2024 22:26:26
--- NOTE | ~2024-04-20 | XR_ITS ---
CLINICAL HISTORY: 6am REPEAT chest xray in AM 2 view chest x-ray Comparison: CT/SR - CT ANGIO CHEST PE PROTOCOL - 04/20/24 21:40 EST Findings: Linear atelectasis in the right lung. Left basilar atelectasis and possibly a small effusion. No pneumothorax. Normal heart size. IMPRESSION: 1. Hypoventilatory changes. Possible small left effusion. This document has been electronically signed by: Autumn Peralta MD on 04/21/2024 06:11:57
[2024-04-20 19:48] VITALS: BP 148/104; PULSE 73; RESP 20; TEMP 36.8; O2SAT 95; BMI 24.4
--- NOTE | 2024-04-20 19:48 | ECG_ITS ---
Test Reason : SOB Blood Pressure : */* mmHG Vent. Rate : 68 BPM Atrial Rate : 68 BPM P-R Int : 178 ms QRS Dur : 92 ms QT Int : 392 ms P-R-T Axes : 20 24 -1 degrees QTcB Int : 416 ms Normal sinus rhythm Anterior infarct , age undetermined Abnormal ECG No previous ECGs available Referred By: Yang Vaughn Electronically Signed By: Regino Pitts
--- NOTE | 2024-04-20 19:49 | ED_ITS ---
HPI - General Adult General Chief complaint: General Medical Stated complaint: had surgery/fells pain in lungs when he breaths Time Seen by Provider: 04/20/24 20:59 Source: patient and old records reviewed Mode of arrival: ambulatory Limitations: no limitations History of Present Illness ED Provider: BELLA OWENS narrative: 63 yo male with PMH of HTN, hiatal hernia s/p repair at [facility] with Dr. Gustafson on Sunday. He has been doing okay but yesterday started to feel a R sided lower lung pain and back pain it hurts to breathe. He has no fevers, cough, n/v. His incisions look good. He has no hx of VTE but notes his two sisters are on thinners for blood clots. He otherwise feels fine MD complaint: pleuritic lung pain Onset (ago): day(s) (2) Location: chest Radiation: back Severity: moderate Quality: stabbing Pain Consistency: intermittent Relieving factors: none Exacerbating factors: other (inspiration) Associated symptoms: denies other symptoms Treatments prior to arrival: none Related Data Home Medications ?Medication ?Instructions ?Recorded ?Confirmed allopurinol 300 mg tablet 300 mg PO DAILY 06/01/23 01/31/24 amlodipine 2.5 mg tablet 2.5 mg PO DAILY 06/01/23 01/31/24 epinephrine 0.3 mg/0.3 mL 0.3 mg IM Q4H PRN 06/01/23 01/31/24 injection, auto-injector (EpiPen 2-Alan) irbesartan 300 mg tablet 300 mg PO DAILY 06/01/23 01/31/24 propranolol 10 mg tablet 10 mg PO .1x daily PRN 06/01/23 01/31/24 testosterone 1 % (25 mg/2.5 gram) 1 packet transdermal DAILY 06/01/23 01/31/24 transdermal gel packet Previous Rx's ?Medication ?Instructions ?Recorded diclofenac potassium 50 mg tablet 50 mg PO DAILY PRN pain #30 tabs 01/31/24 morphine 15 mg immediate release 15 mg PO Q6H PRN pain #14 tabs 04/21/24 tablet Allergies Allergy/AdvReac Type Severity Reaction Status Date / Time celery Allergy Severe Anaphylaxis Uncoded 04/20/24 19:49 cypriot grapes Allergy Severe Anaphylaxis Uncoded 04/20/24 19:49 Review of Systems 2 Review of Systems: Constitutional : No Weight loss, No Fever, No Chills ENT/Mouth : No sore throat, No Rhinorrhea Eyes: No Eye Pain, No Swelling Cardiovascular : pos Chest Pain, no SOB, no Dyspnea on Exertion, No Orthopnea, No Edema, No Palpitations Respiratory : No Cough, No Sputum Gastrointestinal : pos Nausea, No Vomiting, No Diarrhea, No abdominal Pain, No Hematochezia, No Melena Genitourinary : No Dysuria, No Urinary Frequency Musculoskeletal : No joint pain, No Myalgias, No Joint Swelling Skin : No Skin Lesions, No rash Neuro : No Weakness, No Numbness, No Dizziness, No Headache All other systems reviewed and are negative [facility] Past Medical History Attestation statement: The following information was validated with the patient. Source: old records reviewed Medical History (Updated 04/21/24 @ 08:58 by Nirav Dumont MD) Multiple pulmonary nodules Paraesophageal hernia Social History Social History Patient Tobacco Use Status: Former Tobacco user Tobacco use type: Cigarette Cigarette Packs Per Day: 1 Years Smoked: 10 Current occupational status: employed Current occupation: mainframe software developer, right hand dominant Physical Exam ED Vital Signs: Vital Signs - 24 hr 04/20/24 19:48 04/20/24 21:15 04/20/24 22:23 Temperature 98.2 F 98.1 F Pulse Rate 73 68 72 Respiratory Rate 20 16 16 Blood Pressure 148/104 H 159/101 H 154/98 H Pulse Oximetry 95 94 90 L Oxygen Delivery Method Room Air Room Air Room Air Oxygen Flow Rate 04/20/24 22:26 04/21/24 05:41 04/21/24 07:50 Temperature 97.8 F Pulse Rate 76 76 Respiratory Rate 16 16 Blood Pressure 117/88 Pulse Oximetry 94 93 Oxygen Delivery Method Nasal Cannula Nasal Cannula Oxygen Flow Rate 2 2 04/21/24 09:11 Temperature 98.1 F Pulse Rate 78 Respiratory Rate 20 Blood Pressure 137/68 Pulse Oximetry 94 Oxygen Delivery Method Room Air Oxygen Flow Rate BMI result Body Mass Index 24.4 Appearance: Alert. Oriented X3. No acute distress. Eyes: Pupils equal, round and reactive to light. ENT: Pharynx normal. Neck: Normal inspection. Neck supple. CVS: Normal heart rate and rhythm. Pulses normal. Respiratory: No respiratory distress. Breath sounds normal. Abdomen: Soft and nontender. incisions are c/d/i Skin: Skin warm and dry. Normal skin color. Normal skin turgor. Extremities: No lower extremity edema. No calf ttp Neuro: Oriented X 3. No motor deficit. No sensory deficit. CN2-12 intact Course Course Course Narrative: RME: 63 yold male recent hernia surgery this past sunday presents to the ED for right-sided chest pain and pleurisy. Patient has strong family history of PE/DVT. Patient O2 sats stable. Patient informed not to leave the waiting room. Labs EKG ordered D-dimer ordered. Patient informed immediately want to do chest CTA. Reevaluation(s) Reevaluation #1: signed out to Dr. Alvarado pending CXR in AM incentive spirometer used Reevaluation #2: Dr. Dumont: This patient was signed out to me by the overnight emergency physician. The patient is a 63-year-old male who had hiatal hernia surgery 3 days ago on Sunday at [facility] by Dr. Mo Perez. The patient has been discharged from the hospital on Sunday. Yesterday he had increasing pleuritic pain and came to the emergency room. He had a CT that showed no pulmonary embolism but did show trace bilateral pneumothoraces and pleural effusions. He was kept in the emergency room overnight because he seemed to have an oxygen requirement. This morning he was given a dose of ketorolac and IV acetaminophen. He was given a DuoNeb updraft. His oxygen saturations have improved. My overall impression is that I think the the patient is having fairly unremarkable postoperative pain and needs pain control and pulmonary toilet. I think he may be discharged. I have sent a prescription for morphine tablets that he may use instead of the tramadol tablets that were originally prescribed for him. I was able to contact his surgeon in [place] and update him on the patient's course in the emergency room. Time: 09:02 Medications Administered Discontinued Medications Generic Name Dose Route Start Last Admin Trade Name Freq PRN Reason Stop Dose Admin Albuterol/Ipratropium 3 ml 04/21/24 07:14 04/21/24 07:49 Albuterol/Iprat 2.5/0.5mg 3 Ml Ampul.Neb INHALE 04/21/24 07:15 3 ml ONCE ONE Administration Acetaminophen 1,000 mg in 100 mls @ 400 mls/hr 04/21/24 07:14 04/21/24 08:23 Ofirmev IV 04/21/24 07:28 Infused ONCE ONE Infusion Iohexol 65 ml 04/20/24 21:56 04/20/24 21:56 Iohexol 350 Mg/Ml 100 Ml Infus..Btl IV 04/20/24 21:57 65 ml ONCE ONE Administration Ketorolac Tromethamine 10 mg 04/21/24 07:14 04/21/24 07:48 Ketorolac Tromethamine 15 Mg/Ml Vial IVPUSH 04/21/24 07:15 10 mg ONCE ONE Administration Morphine Sulfate 4 mg 04/21/24 05:52 04/21/24 07:04 Morphine Sulfate 4 Mg/Ml Cartridge IVPUSH 04/21/24 05:53 Not Given ONCE STA Protocol Medical Decision Making Medical Decision Making [facility] Narrative: 63 yo male with PMH of HTN, hiatal hernia s/p repair at [facility] on Sunday now with pleuritic R chest and back pain but no associated cough, fevers, dyspnea. His incisions are well healing. At this time will obtain labs, EKG, CTA for PE/effusion. Possible VTE vs pleurisy. Differential Diagnosis Differential Diagnoses: The differential diagnosis associated with the presentation includes pleurisy, effusion, VTE Admission/Observation Consideration of admission/observation: Escalation of care including admission/observation considered hold over night for repeat CXR physician observatoin started at 1049pm signed out to Dr. Alvarado Consult Healthcare Provider Management of the patient was discussed with: Pet Caretaker (discussed with Dr. Mitchell ) Stephen hold til AM repeat CXR Lab Data [facility] Lab Attestation statement: I reviewed the patient's lab results. 04/20/24 20:46 04/20/24 20:46 Labs: Lab Results 04/20/24 Range/Units 20:46 WBC 8.8 (4.8-10.8) X10*3/uL RBC 5.52 (4.60-5.80) X10*6/uL Hgb 17.3 D (14.0-18.0) g/dl Hct 50.8 (42.0-52.0) % MCV 92.0 (80.0-98.0) fL MCH 31.3 (27.0-33.0) pg MCHC 34.1 (31.0-36.0) g/dl RDW 14.8 (11.0-16.0) % Plt Count 268 (160-400) X10*3/uL MPV 10.1 (9.4-12.4) fL Immature Gran % (Auto) 0.3 (0.0-0.4) % Neut % (Auto) 62.9 (45-73) % Lymph % (Auto) 23.8 (20-40) % Marinette % (Auto) 9.6 (2-11) % Eos % (Auto) 2.6 (0-4) % Baso % (Auto) 0.8 (0-2) % Lymph # (Auto) 2.1 (1.2-4.9) X10*3/uL Marinette # (Auto) 0.9 (0.1-1.2) X10*3/uL Eos # (Auto) 0.2 (0.0-0.4) X10*3/uL Baso # (Auto) 0.1 (0.0-0.2) X10*3/uL Abs Immat Gran (auto) 0.03 (0.00-0.03) X10*3/uL Absolute Neuts (auto) 5.5 (2.0-8.3) x10*3/uL Absolute Nucleated RBC 0.000 (0.0-0.012) X10*3/uL Nucleated RBC % (auto) 0.0 (0.0-0.2) /100WBC PT 10.8 L (10.9-12.4) SEC INR 0.9 (0.9-1.1) APTT 30.2 (26.0-36.8) SEC D-Dimer High Sensitivty 615 NG/ML Hold Blue Top Cancelled Sodium 140 (135-145) mmol/L Potassium 4.1 (3.3-5.1) mmol/L Chloride 103 (96-108) mmol/L Carbon Dioxide 25 (22-29) mmol/L Anion Gap 16 (12-20) BUN 12 (9-16) mg/dL Creatinine 0.86 (0.5-1.4) mg/dL Estim Creat Clear Calc 90.2 Estimated GFR > 60 Random Glucose 87 (60-115) mg/dL Calcium 9.3 (8.4-10.2) mg/dL Total Bilirubin 0.4 (0.0-1.0) mg/dL AST 36 (5-37) U/L ALT 73 H (0-40) U/L Alkaline Phosphatase 88 (39-117) U/L Troponin I High Sens < 2.7 (<3.5-35.0) ng/L B-Natriuretic Peptide 69 (<100) pg/mL Total Protein 7.8 (6.5-8.0) g/dL Albumin 4.3 (3.5-5.0) g/dL Influenza Type A (PCR) NEGATIVE (Negative) Influenza Type B (PCR) NEGATIVE (Negative) RSV RNA Qual (PCR) NEGATIVE (Negative) SARS-CoV-2 RNA (RT-PCR) NEGATIVE (Negative) Independent Interpretation I performed an independent interpretation of an: EKG and CT Scan (effusions small PTX) Interpretation: Rate: 68 Rhythm: NSR Coolidge: normal Normal P waves. Normal PROMISE. Normal QRS complex. ST T wave : normal no ERI qTC: 416 prior studies: none The study has been interpreted contemporaneously by me. . Radiology Impression Discussion of test interpretation with radiology: I have reviewed the radiologist's reading. External Record Review External record reviewed: Outpatient record Discharge Plan Discharge Clinical Impression: Chest pain, pleuritic, Post-operative pain Patient Disposition: Still a Patient Instructions: How to Use an Incentive Spirometer (ED) Additional Instructions: For pain control you may take 2 extra-strength acetaminophen (Tylenol) up to 3 times a day. This is a daily maximal dosage of 3000 mg. I believe you were previously prescribed tramadol for pain. If you find the tramadol helpful you may continue using the tramadol. However if the tramadol is not helping you I have sent a prescription for morphine tablets to your pharmacy which you can use instead. Please try to use the incentive spirometer every hour to help keep your lungs fully expanded. Please stay in touch with your surgeon for additional advice over the phone as needed. If you get significantly worse contact your surgeon or return to the emergency department. Prescriptions: New morphine 15 mg tablet 15 mg PO Q6H PRN (Reason: pain) Qty: 14 0RF Rx Instructions: Partial Fill upon patient request. No Action allopurinol 300 mg tablet 300 mg PO DAILY amlodipine 2.5 mg tablet 2.5 mg PO DAILY epinephrine [EpiPen 2-Alan] 0.3 mg/0.3 mL auto-injector 0.3 mg IM Q4H PRN irbesartan 300 mg tablet 300 mg PO DAILY testosterone 1 % (25 mg/2.5gram) gel in packet 1 packet transdermal DAILY propranolol 10 mg tablet 10 mg PO .1x daily PRN diclofenac potassium 50 mg tablet 50 mg PO DAILY PRN (Reason: pain) Qty: 30 1RF Rx Instructions: Take with food, do not take with any other nonsteroidal anti-inflammatory medications. Referrals: Jah Storey MD [Primary Care Provider] - (Status post hiatal hernia surgery) Interventions: ED Discharge Assessment Last Done: 04/21/24 09:11 Discharge Date/Time: 04/21/24 09:15 Print Language: Vincentian
[2024-04-20 20:51] LABS: MANUAL DIFF FLAG NO
[2024-04-20 20:53] LABS: Basophils Absolute Auto 0.1 X10*3/uL (0.0-0.2); Basophils Percent Auto 0.8 % (0-2); Eosinophils Absolute Auto 0.2 X10*3/uL (0.0-0.4); Eosinophils Percent Auto 2.6 % (0-4); Hematocrit 50.8 % (42.0-52.0); Hemoglobin 17.3 g/dl (14.0-18.0); Imm Gran Abs Auto 0.03 X10*3/uL (0.00-0.03); Imm Gran Pct Auto 0.3 % (0.0-0.4); Lymphocytes Absolute Auto 2.1 X10*3/uL (1.2-4.9); Lymphocytes Percent Auto 23.8 % (20-40); Mean Corpuscular HGB Conc 34.1 g/dl (31.0-36.0); Mean Corpuscular Hemoglobin 31.3 pg (27.0-33.0); Mean Platelet Volume 10.1 fL (9.4-12.4); Monocytes Absolute Auto 0.9 X10*3/uL (0.1-1.2); Monocytes Percent Auto 9.6 % (2-11); Neutrophils Absolute Auto 5.5 x10*3/uL (2.0-8.3); Neutrophils Percent Auto 62.9 % (45-73); Platelet Count 268 X10*3/uL (160-400); Red Blood Count 5.52 X10*6/uL (4.60-5.80); Red Cell Distribution Width 14.8 % (11.0-16.0); White Blood Count 8.8 X10*3/uL (4.8-10.8)
[2024-04-20 21:00] LABS: INTERNATIONAL NORM RATIO 0.9 (0.9-1.1); Prothrombin Time 10.8 SEC (10.9-12.4)
[2024-04-20 21:02] LABS: D Dimer High Sensitivity 615 NG/ML; Partial Thromboplastin Time 30.2 SEC (26.0-36.8)
[2024-04-20 21:07] LABS: Alanine Aminotransferase 73 U/L (0-40); Albumin Level 4.3 g/dL (3.5-5.0); Alkaline Phosphatase 88 U/L (39-117); Anion Gap 16 (12-20); Aspartate Amino Transferase 36 U/L (5-37); Bilirubin Total 0.4 mg/dL (0.0-1.0); Blood Urea Nitrogen 12 mg/dL (9-16); Calcium 9.3 mg/dL (8.4-10.2); Carbon Dioxide 25 mmol/L (22-29); Chloride 103 mmol/L (96-108); Creatinine Clr Calc Pharmacy 90.2; Estimated Glomerular Filt Rate > 60; Glucose Random 87 mg/dL (60-115); Potassium 4.1 mmol/L (3.3-5.1); Sodium 140 mmol/L (135-145); Total Protein 7.8 g/dL (6.5-8.0)
[2024-04-20 21:13] LABS: B Type Natriuretic Peptide 69 pg/mL (<100)
[2024-04-20 21:14] LABS: Troponin-I High Sensitivity < 2.7 ng/L (<3.5-35.0)
[2024-04-20 21:15] VITALS: BP 159/101; PULSE 68; RESP 16; TEMP 36.7; O2SAT 94
--- OUTSIDE RECORDS SUMMARY | 2024-04-20 21:18 | XMS_ITS | Clinical Summary ---
Author Organization [facility] Address [address] [place] [address] Phone Care Team Providers Care Dedicated Driver Name Role Phone Jah Storey MD Primary Care Provider [phone] Encounters Date Type Department Care Team Description 04/11/2024 11:13 AM EST - 04/11/2024 11:59 PM EST Hospital Encounter [facility] Ultrasound [address] [place] [address] Discharge Disposition: Home or Self Care from Last 3 Months Social History Tobacco Use Types Packs/Day Years Used Date Smoking Tobacco: Never Assessed Sex and Gender Information Value Date Recorded Sex Assigned at Male 04/10/2024 10:11 AM EST Gender Identity Male 04/10/2024 10:11 AM EST Sexual Orientation Straight 04/10/2024 10 :11 AM EST Job Start Date Occupation Industry Not on file Not on file Not on file Plan of Treatment Health Maintenance Due Date Last Done Comments Pneumococcal Vaccine: Pediatrics (0 to 5 Years) and At-Risk Patients (6 to 64 Years) (1 of 2 - PCV) 1968 DTaP,Tdap,and Td Vaccines (1 - Tdap) 1981 Zoster Vaccines (1 of 2) 2012 Cholesterol Screening (Lipid Panel) 02/14/2022 Colorectal Cancer Screening: Colonoscopy 02/14/2022 Depression Screening 02/14/2022 HIV Screening 02/14/2022 Hepatitis C Screening 02/14/2022 Social Influencers of Health Screening 02/14/2022 RSV Immunization Patients 60 + Years Old (1 - 1-dose 75+ series) 2037 Hepatitis A Vaccines Aged Out 04/28/2013 No long er eligible based on patient's age to complete this topic Influenza Vaccine Completed 12/27/2023, 12/12/2022, 02/24/2022 COVID-19 Vaccine Completed 02/29/2024, 12/12/2022, 02/24/2022 HIB Vaccines Aged Out No longer eligi ble based on patient's age to complete this topic HPV Vaccines Aged Out No longer eligi ble based on patient's age to complete this topic Hepatitis B Vaccines Aged Out No long er eligible based on patient's age to complete this topic IPV Vaccines Aged Out No longer eligi ble based on patient's age to complete this topic MMR Vaccines Aged Out No longer eligi ble based on patient's age to complete this topic Meningococcal ACWY Vaccine Aged Out N o longer eligible based on patient's age to complete this topic RSV Immunization Patients Under 20 months Aged Out No longer eligible b ased on patient's age to complete this topic Varicella Vaccines Aged Out No longer eligible based on patient's age to complete this topic Procedures Procedure Name Priority Date/Time Associated Diagnosis Comments US ABDOMEN LIMITED Routine 04/11/2024 11 :42 AM EST Inflammatory liver disease, unspecified from Last 3 Months Results * US Abdomen Limited (04/11/2024 11:42 AM EST) Anatomical Region Laterality Modality Body Ultrasound 04/14/2024 11:1 8 AM EST Impressions 04/14/2024 11:21 AM EST HEPATIC STEATOSIS. ??OTHERWISE NORMAL EXAM. -------- FINAL REPORT -------- Dictated By: JACK ZARAGOZA Dictated Date: 04/14/2024 11:18 ET Assigned Physician: JACK ZARAGOZA Reviewed and Electronically Signed By: JACK ZARAGOZA Signed Date: 04/14/2024 11:21 ET Workstation ID: [id number] Transcribed By: Self Edit Transcribed Date: 04/14/2024 11:18 ET Narrative 04/14/2024 11:21 AM EST PROCEDURE: US ABDOMEN LIMITED INDICATION: Pain, hepatitis TECHNIQUE: ??2-D david scale, color Doppler ultrasound of the abdomen. COMPARISON: 04/29/2015 CT FINDINGS: Visualized portions of the pancreas, aorta, and IVC are within normal limits. Hepatic steatosis. ??No focal liver lesions. ??Normal directional flow within the main portal vein. Gallbladder is normal. ??No gallbladder wall thickening. ??Sonographic Acevedo sign is negative. No biliary duct dilatation. ??Common bile duct is not well-visualized due to overlying bowel gas and body habitus. Right kidney measures 11 cm in length. ??No hydronephrosis or solid mass. Spleen is normal and measures 10 cm. ??No ascites. Procedure Note Jack Zaragoza MD - 04/14/2024 PROCEDURE: US ABDOMEN LIMITED INDICATION: Pain, hepatitis TECHNIQUE: 2-D david scale, color Doppler ultrasound of the abdomen. COMPARISON: 04/29/2015 CT FINDINGS: Visualized portions of the pancreas, aorta, and IVC are withinnormal limits. Hepatic steatosis. No focal liver lesions. Normal directional flowwithin the main portal vein. Gallbladder is normal. No gallbladder wall thickening. SonographicMurphy sign is negative. No biliary duct dilatation. Common bile duct is not well-visualized dueto overlying bowel gas and body habitus. Right kidney measures 11 cm in length. No hydronephrosis or solid mass. Spleen is normal and measures 10 cm. No ascites. IMPRESSION: HEPATIC STEATOSIS. OTHERWISE NORMAL EXAM. -------- FINAL REPORT -------- Dictated By: JACK ZARAGOZA Dictated Date: 04/14/2024 11:18 ET Assigned Physician: JACK ZARAGOZA Reviewed and Electronically Signed By: JACK ZARAGOZA Signed Date: 04/14/2024 11:21 ET Workstation ID: [id number] Transcribed By: Self Edit Transcribed Date: 04/14/2024 11:18 ET Jah Storey MD [facility] PROCEDURES from Last 3 Months Care Teams Dedicated Driver Relationship Specialty Start Date End Date Jah Storey MD [address] [place] [id number] PCP - General Internal Medicine 04/10/24
--- OUTSIDE RECORDS SUMMARY | 2024-04-20 21:19 | XMS_ITS | Encounter Summary ---
Author Organization [facility] Address [address] [place] [address] Care Team Providers Care Header Dock Name Role Phone Jah Storey MD Primary Care Provider [phone] Reason for Visit * Imaging (Routine) - Closed Specialty Diagnoses / Procedures Referred By Contbobby t Referred To Contact Radiology Diagnoses Inflammatory liver disease, unspecified Procedures US Abdomen Limited Jah Storey MD [address] [place] [address] [facility] Referral ID Status Reason Start Date Expiration Date Visits Re quested Visits Authorized [id number] Closed 04/07/2024 04/07/2025 1 1 Encounter Details Date Type Department Care Team (Latest Contact Info) Description 04/11/2024 11:13 AM EST - 04/11/2024 11:59 PM EST Hospital Encounter [facility] Ultrasound [address] [place] [phone] Discharge Disposition: Home or Self Care Social History Tobacco Use Types Packs/Day Years Used Date Smoking Tobacco: Never Assessed Sex and Gender Information Value Date Recorded Sex Assigned at Male 04/10/2024 10:11 AM EST Gender Identity Male 04/10/2024 10:11 AM EST Sexual Orientation Straight 04/10/2024 10 :11 AM EST Job Start Date Occupation Industry Not on file Not on file Not on file documented as of this encounter Discharge Disposition Disposition Code Departure Means Destination Home or Self Care documented in this encounter Plan of Treatment Not on file documented as of this encounter Procedures Procedure Name Priority Date/Time Associated Diagnosis Comments US ABDOMEN LIMITED Routine 04/11/2024 11 :42 AM EST Inflammatory liver disease, unspecified documented in this encounter Results * US Abdomen Limited (04/11/2024 11:42 AM EST) Anatomical Region Laterality Modality Body Ultrasound 04/14/2024 11:1 8 AM EST Impressions 04/14/2024 11:21 AM EST HEPATIC STEATOSIS. ??OTHERWISE NORMAL EXAM. -------- FINAL REPORT -------- Dictated By: JACK ZARAGOZA Dictated Date: 04/14/2024 11:18 ET Assigned Physician: JACK ZARAGOZA Reviewed and Electronically Signed By: JACK ZARAGOZA Signed Date: 04/14/2024 11:21 ET Workstation ID: [id number] Transcribed By: Self Edit Transcribed Date: 04/14/2024 [...] Signed Date: 04/14/2024 11:21 ET Workstation ID: [id number] Transcribed By: Self Edit Transcribed Date: 04/14/2024 11:18 ET Jah Storey MD IMG US PROCEDURES documented in this encounter Visit Diagnoses Not on filedocumented in this encounter Care Teams Header Dock Relationship Specialty Start Date End Date Jah Storey MD [address] [place] [address] PCP - General Internal Medicine 04/10/24 documented as of this encounter
[2024-04-20 21:31] LABS: Influenza A PCR NEGATIVE (Negative); Influenza B PCR NEGATIVE (Negative); Resp Syncy Virus RNA Qual PCR NEGATIVE (Negative); SARS COV2 PCR INHOUSE NEGATIVE (Negative)
[2024-04-20] MEDS: iohexoL 350 MG/ML 100 ML INFUS..BTL 65 ML IV (21:56)
[2024-04-20 22:23] VITALS: BP 154/98; PULSE 72; RESP 16; O2SAT 90
[2024-04-20 22:26] VITALS: O2SAT 94
[2024-04-21 05:41] VITALS: BP 117/88; PULSE 76; RESP 16; TEMP 36.6; O2SAT 93
--- NOTE | 2024-04-21 06:37 | PC.NURSE ---
patient to trail no oxygen, 2L NC removed, continued to drop O2 to 88-90% 2L NC replaced sats at 93%
[2024-04-21] MEDS: Acetaminophen 1,000 MG/100 ML PIGGYBACK 400 MG IV (07:47)
[2024-04-21] MEDS: Ketorolac Tromethamine 15 MG/ML VIAL 10 MG IVPUSH (07:48)
[2024-04-21] MEDS: Albuterol/Iprat 2.5/0.5MG 3 ML AMPUL.NEB INHALE (07:49)
[2024-04-21 07:50] VITALS: PULSE 76; RESP 16; O2SAT 94
--- NOTE | 2024-04-21 08:40 | PC.NURSE ---
patient ambulation trial in [facility] with RN. Patient off oxygen with multiple laps up and down hallway maintaining saturations at 93-94% without supplementation. patient denied any SOB and no WOB noted. pt states feels good to go home. made aware
[2024-04-21 09:11] VITALS: BP 137/68; PULSE 78; RESP 20; TEMP 36.7; O2SAT 94
== END 2024-04-21 09:15 | disposition still patient (30) ==
PROVIDERS: Emergency Medicine; Physician Assistant; Emergency Provider Emergency Medicine; PCP Internal Medicine
DX: R07.89 Other chest pain (principal); G89.18 Other acute postprocedural pain; R06.02 Shortness of breath; M54.50 Low back pain, unspecified; Z03.818 Encounter for observation for suspected exposure to other biological agents ruled out; Z79.899 Other long term (current) drug therapy; Z87.891 Personal history of nicotine dependence
CPT/HCPCS: 0241U; 36415; 71046; 71275; 80053; 83880; 84484; 85025; 85379; 85610; 85730; 93005; 94640; 96365; 96375; 99285; J0131; J1885; Q9967

== ENCOUNTER → 2024-04-20 19:48 | Outpatient (BNV) | payer OTHER, SELFPAY | PROVIDERS: Emergency Provider Emergency Medicine; PCP Internal Medicine; Visit Provider Internal Medicine Cardiovascular Disease | DX: R06.02 Shortness of breath (principal) | CPT/HCPCS: 93010 ==

== ENCOUNTER → 2024-04-20 21:16 | Outpatient (BNV) | payer OTHER, SELFPAY | PROVIDERS: Emergency Provider Emergency Medicine; PCP Internal Medicine; Visit Provider Radiology Diagnostic Radiology | DX: J98.11 Atelectasis (principal); I77.810 Thoracic aortic ectasia; I28.8 Other diseases of pulmonary vessels | CPT/HCPCS: 71275 ==

== ENCOUNTER → 2024-04-21 06:00 | Outpatient (BNV) | payer OTHER, SELFPAY | PROVIDERS: Emergency Provider Emergency Medicine; PCP Internal Medicine; Visit Provider Radiology Diagnostic Radiology | DX: J98.11 Atelectasis (principal) | CPT/HCPCS: 71046 ==

== ENCOUNTER 2025-01-02 12:47 | Outpatient (REF) | payer OTHER, SELFPAY ==
--- NOTE | ~2025-01-02 | CT_ITS ---
EXAMINATION: CT CHEST WITHOUT CONTRAST CLINICAL INFORMATION: R 91.8. Other nonspecific abnormal finding of the lung. COMPARISON: April 20, 2024. TECHNIQUE: Multidetector volumetric CT imaging of the chest was done. Axial MIP volume rendering provided. Sagittal and coronal reformatted images were obtained. This CT examination was performed using dose optimization techniques as appropriate, variously including the following: *Automated exposure control *Adjustment of mA and/or kV according to patient size (this includes techniques or standardized protocols for targeted exams where dose is matched to indication/reason for exam; i.e. extremities or head) *Use of iterative reconstruction technique DLP: 152 mGy centimeter. FINDINGS: TSA SCREENER: Good inspiration. Cardiomediastinal silhouette size is normal. Upper extremities at the size of the head. Mild S-shaped curvature of the thoracolumbar spine. LUNGS: There are 2 mm noncalcified pulmonary nodules, subpleural right upper and middle lung lobes. No bronchiectasis. Honeycombing. No gross consolidation. Bilateral apical lung scarring. Respiratory airways patent. MEDIASTINUM: No mediastinal lymphadenopathy. Heart is not enlarged. No pericardial effusion. No pneumomediastinum. No aneurysm, thoracic aorta. No gross pulmonary nodules in the included thyroid gland. CORONARY ARTERY CALCIFICATION: None visualized on this study. PLEURA: No pleural plaques. No pneumothorax. No hemothorax. AXILLA: No specific prominent axillary lymph nodes. UPPER ABDOMEN: Moderate to large volume hiatal hernia. Few scattered diverticula, transverse colon. Collapsed gallbladder likely recent medial. OSSEOUS STRUCTURES: Mild multilevel spondylosis. Osteopenia. No acute fracture or gross listhesis. Sternum is intact. No acute rib fracture. Degenerative changes in the glenohumeral joints. CT/CT chest wo IV con IMPRESSION: Nonspecific less than 2 mm subpleural pulmonary nodules, right lung. If clinically concerned recommend 12 month follow-up. Hiatal hernia, moderate to large volume. Diverticular disease, transverse colon. Fleischner guidelines were followed. Electronically signed by: Alex Chacon MD 01/02/2025 01:49 PM EDT
--- OUTSIDE RECORDS SUMMARY | 2025-01-02 15:09 | XMS_ITS | Clinical Summary ---
Author Organization [facility] Address [address] [address] Phone Care Team Providers Care Vessel Manager Name Role Phone Jah Storey MD Primary Care Provider [phone] Allergies Active Allergy Reactions Criticality Noted Date Comments Celery Anaphylaxis High 03/28/2024 Ragweed Sneezing 04/18/2024 Medications allopurinoL 200 mg Tab Active amLODIPine (NORVASC) 2.5 MG tablet Take 1 tablet by mouth every morning. 02/03/2024 Active cetirizine (ZYRTEC) 10 MG tablet Take 10 mg by mouth daily. Active traMADoL (ULTRAM) 50 mg tablet Take 1 tablet (50 mg total) by mouth every 6 (six) hours as needed for pain (specific location in comments). 10 tablet 04/19/2024 Active irbesartan (AVAPRO) 300 MG tablet Take 1 tablet (300 mg total) by mouth every morning. 04/20/2024 Active polyethylene glycol (MIRALAX) 17 gram packet Take 17 g by mouth daily. 04/20/2024 Active senna (SENOKOT) 8.6 mg tablet Take 2 tablets by mouth 2 (two) times a day. 04/19/2024 Active acetaminophen (TYLENOL) 325 mg tablet Take 2 tablets (650 mg total) by mouth every 6 (six) hours. 04/19/2024 Active lidocaine 4 % Place 2 patches onto the skin daily. 04/19/2024 Active ibuprofen (ADVIL,MOTRIN) 400 MG tablet Take 1 tablet (400 mg total) by mouth every 8 (eight) hours as needed. 04/19/2024 Active ascorbic acid, vitamin C, (VITAMIN C) 500 MG tablet Take 1 tablet (500 mg total) by mouth daily. 04/21/2024 Active cholecalciferol (VITAMIN D3) 25 MCG (1,000 unit) tablet Take 1 tablet (1,000 Units total) by mouth daily. 04/21/2024 Active ferrous sulfate 325 mg (65 mg [place] iron) tablet Take 1 tablet (325 mg total) by mouth daily with breakfast. 04/21/2024 Active Active Problems Problem Noted Date Diagnosed Date Hiatal hernia 04/18/2024 Encounters Date Type Department Care Team Description 10/23/2024 Orders Only [facility] [place] Administrative [address] [place] [address] Rickey Acevedo MD, PhD from Last 3 Months Social History Tobacco Use Types Packs/Day Years Used Date Smoking Tobacco: Former Cigarettes 1 50.8 S tarted: 03/19/1974 Tobacco Cessation:Counseling Given: Not Answered Comments:I am happy I quit and never relapsed. Alcohol Use Standard Drinks/Week Comments Yes 10 (1 standard drink = 0.6 oz pure alcohol) New year resolution quit alcohol Education Answer Date Recorded Are you interested in more education? Not on sapna e 12/27/2023 Are you concerned about learning? Not on file 12/27/2023 No 12/27/2023 No 12/27/2023 Digital Access Answer Date Recorded No 12/27/2023 No 12/27/2023 Reliable internet access at home? Not on file 12/27/2023 Device with a working camera? Not on file Intimate Partner Violence Answer Date R ecorded Are you denied basic needs s uch as food, clothing, or medical care? No 04/18/2024 In the past 12 months have y ou been in a relationship with a person who hurts, threatens, or tries to control you? No 04/18/2024 Are you denied basic needs s uch as food, clothing, or medical care? No 04/18/2024 In the past 12 months have y ou been in a relationship with a person who hurts, threatens, or tries to control you? No 04/18/2024 Sex and Gender Information Value Date Recorded Sex Assigned at Male 01/23/2024 9:23 AM EST Legal Sex Male 9:38 AM EDT Gender Identity Male 01/23/2024 9:23 AM EST Sexual Orientation Asexual 01/23/2024 9: 23 AM EST Last Filed Vital Signs Vital Sign Reading Time Taken Comments Blood Pressure 135/79 04/19/2024 8:00 AM EST Pulse 65 04/19/2024 8:00 AM EST Temperature 36.3 C (97.3 F) 04/19/2024 8:00 AM EST Respiratory Rate 18 04/19/2024 8:00 AM EST Oxygen Saturation 92% 04/19/2024 8:00 AM EST Inhaled Oxygen Concentration - - Weight 76.2 kg (167 lb 15.9 oz) 04/19/2024 5:37 AM EST Height 175.3 cm (5' 9 ) 04/18/2024 7:00 PM EST Body Mass Index 24.81 04/18/2024 7:00 PM EST Plan of Treatment Health Maintenance Due Date Last Done Comments Adult Td,Tdap Booster 1960 CREATININE LEVEL 1960 LIPID PANEL 1960 POTASSIUM LEVEL 1960 DEPRESSION SCREENING 1974 SMOKING Hx and SMOKELESS TOBACCO SCREENING 09/10/1975 HEPATITIS C SCREENING 1980 HIV ONE-TIME SCREENING (18-6 5 YEARS) 1980 COLOGUARD 09/10/2007 COLONOSCOPY 09/10/2007 COLORECTAL CANCER SCREENING 09/10/2007 FIT TEST 09/10/2007 FOBT 09/10/2007 SIGMOIDOSCOPY 09/10/2007 VIRTUAL COLONOSCOPY 09/10/2007 PNEUMOCOCCAL VACCINES (50+ years) (1 of 1 - PCV) 2012 ZOSTER VACCINES (1 of 2) 2012 INFLUENZA VACCINE (#1) 2024 , 12/12/2022, 02/24/2022 COVID-19 VACCINE (4 - 2024-2 6 season) 2024 02/29/2024, 12/12/2022, 02/24/2022 RSV VACCINE (1 - 1-dose 75+ series) 2037 HEPATITIS A VACCINES Aged Out No long er eligible based on patient's age to complete this topic HIB VACCINES Aged Out No longer eligi ble based on patient's age to complete this topic MENINGOCOCCAL VACCINES (ACWY) Aged Out No longer eligible based on patient's age to complete this topic MENINGOCOCCAL VACCINES (B) Aged Out N o longer eligible based on patient's age to complete this topic Medical Devices Implanted Type Area Station Repairer Device Identifier Shelf Expiration Date Model / Serial / Lot Titanium Clips In Testicles Insurance CIGNA PPO CIGNA PPO CIGNA PPO CIGNA PPO CIGNA PPO CIGNA PPO Advance Directives For more information, please contact: [phone] (9AM - 5PM [facility], Sunday-Sunday) * Full Code (Latest Code Status on File) Date Activated Date Inactivated Comments 04/18/2024 2:23 PM Question Answer Comments Code Status Confirmed With: Other (specify below ) Care Teams Vessel Manager Relationship Specialty Start Date End Date Jah Storey MD PCP - General Internal Medicine 07/06/23 Additional Source Comments The information contained in this document represents components of the legal health record. It is not the complete legal health record.[facility]
--- OUTSIDE RECORDS SUMMARY | 2025-01-02 15:09 | XMS_ITS | Clinical Summary ---
Author Organization [facility] Address [address] [place] [address] Phone Care Team Providers Care Rubber Stamp Assembler Name Role Phone Jah Storey MD Primary Care Provider [phone] Allergies Active Allergy Reactions Criticality Noted Date Comments Celery Anaphylaxis,Rash High 03/28/2024 Ragweed Sneezing 04/18/2024 Medications ascorbic acid (VITAMIN C) 500 mg tablet Take 1 tablet (500 mg total) by mouth daily. Active amLODIPine (NORVASC) 2.5 mg tablet Take 1 tablet (2.5 mg total) by mouth daily. 02/03/20 24 Active cholecalcifero l (VITAMIN D-3) 25 mcg (1,000 unit) tablet Take 1 tablet (1,000 Units total) by mouth daily. 03/09/20 24 Active ferrous sulfate 325 mg (65 mg elemental iron) tablet Take 1 tablet (325 mg total) by mouth. Active doxycycline (MONODOX) 100 mg capsule TAKE 1 CAPSULE ONCE DAILY WITH DINNER.TAKE WITH FOOD AND WATER. DO NOT LAY DOWN 1 HOUR AFTER TAKING 02/27/20 24 Active diclofenac (CATAFLAM) 50 mg tablet TAKE 1 TAB ORALLY DAILY NEEDED FOR PAIN WITH FOOD, NOT WITH NONSTEROIDAL ANTI-INFLAMMATOR Y MEDS 01/31/20 24 Active testosterone (ANDROGEL) 1 % (25 mg/2.5gram) gel in packet APPLY 1 PACKET TRANSDERMAL TO SKIN DAILY IN THE MORNING TO SHOULDER AND UPPER ARMS FOR 90 DAYS 06/13/19 25 Active traMADoL (ULTRAM) 50 mg tablet take 1 tablet (50 mg) by mouth every 6 hours as needed for pain 04/19/19 25 Active allopurinoL (ZYLOPRIM) 300 mg tablet 11/04/19 25 Active cetirizine (ZyrTEC) 10 mg tablet Take 1 tablet (10 mg total) by mouth daily. Active irbesartan (AVAPRO) 300 mg tablet Take 1 tablet (300 mg total) by mouth daily. 02/03/20 24 Active polyethylene glycol (Golytely) 236-22.74-6.74 -5.86 gram solution Take 4L by mouth once for one dose. May substitue any PEG. Starting at 2PM the day before your procedure drink 1 8oz glasses at your own pace until you complete half of the gallon. Finish 2nd half of the gallon at 8PM. 4000 mL 11/04/19 25 Active bisacodyL (DULCOLAX) 5 mg EC tablet Take 2 tablets by mouth right before beginning bowel prep. See instructions provided by the office 2 tablet 11/04/19 25 Active lansoprazole (PREVACID) [address] capsule Take 1 capsule (15 mg total) by mouth 1 (one) time each day before breakfast. Do not crush or chew. Active hydrocortisone (ANUSOL-HC) 25 mg suppositoryInd ications:Recta l bleeding Insert 1 suppository (25 mg total) into the rectum at bedtime. 14 suppository 1 11/04/19 25 025 Active Problems Problem Noted Date Diagnosed Date HTN (hypertension) 11/03/2024 Gout 11/03/2024 Pulmonary nodules 11/03/2024 Encounters Date Type Department Care Team Description 11/25/2024 Telephone Gastroenterology - [address] [facility] [address] [address] Melita Bustamante PA 11/11/2024 9:46 AM EDT Anesthesia Event [facility] [address] [place] [address] Grupo Castro MD 11/11/2024 9:06 AM EDT - 11/11/2024 11:59 PM EDT Hospital Encounter [facility] [address] [place] [address] Vinay Correia MD Vermes, Rachie, CRNA Rectal bleeding; Change in bowel habits Discharge Disposition: Home or Self Care 11/10/2024 Telephone Gastroenterology - [place] [facility] [address] [facility] [address] [place] [phone] Sharmin Apodaca [place] 11/03/2024 11:00 AM EDT Consult Gastroenterology - 299 [facility] 299 [facility] [address] [place] [phone] Melita Bustamante PA Rectal bleeding (Primary Dx); Change in bowel habits 11/03/2024 Telephone Gastroenterology - [address] [place] [address] 299 [facility] [address] [place] [phone] Vinay Correia MD 10/09/2024 Telephone Gastroenterology - 299 [facility] 299 [facility] [address] [place] [phone] Melita Bustamante PA from Last 3 Months Surgical History Surgery Date Site/Laterality Comments GASTRIC FUNDOPLICATION 03/19/2024 - 04/18/2024 COLONOSCOPY 06/17/2020 - 07/16/2020 5-year recall Medical History Medical History Date Comments Hiatal hernia Hypertension Gout Family History Medical History Relation Name Comments Colon polyps Father Kidney cancer Mother bladder cancer Sister Colon cancer Neg Hx Relation Name Status Comments Father Mother Sister Social History Tobacco Use Types Packs/Day Years Used Date Smoking Tobacco: Former Cigarettes Smokeless Tobacco: Former Tobacco Cessation:Counseling Given: Not Answered Alcohol Use Standard Drinks/Week Comments Yes 0 (1 standard drink = 0.6 oz pur e alcohol) wine Interpersonal Safety Answer Date Record ed Physical Abuse Unrecognized value 11/11/2024 Verbal Abuse Unrecognized value 11/11/2024 Sex and Gender Information Value Date Recorded Sex Assigned at Male 04/10/2024 10:11 AM EST Legal Sex Male 11:02 AM EST Gender Identity Male 04/10/2024 10:11 AM EST Sexual Orientation Straight 04/10/2024 10 :11 AM EST Obstetrics History Last Filed Vital Signs Vital Sign Reading Time Taken Comments Blood Pressure 106/72 11/11/2024 10:21 AM EDT Pulse 68 11/11/2024 10:21 AM EDT Temperature 35.9 C (96.6 F) 11/11/2024 10:01 AM EDT Respiratory Rate 16 11/11/2024 10:21 AM EDT Oxygen Saturation 98% 11/11/2024 10:21 AM EDT Inhaled Oxygen Concentration - - Weight 72.6 kg (160 lb) 11/11/2024 9:25 AM EDT Height 175.3 cm (5' 9 ) 11/11/2024 9:25 AM EDT Body Mass Index 23.63 11/11/2024 9:25 AM EDT Plan of Treatment Health Maintenance Due Date Last Done Comments DTaP,Tdap,and Td Vaccines (1 - Tdap) 1981 Pneumococcal Vaccine: 50+ Years (1 of 1 - PCV) 2012 Zoster Vaccines (1 of 2) 2012 Cholesterol Screening (Lipid Panel) 02/14/2022 HIV Screening 02/14/2022 Hepatitis C Screening 02/14/2022 Social Influencers of Health Screening 02/14/2022 Depression Screening 03/19/2024 Hypertension/CHF/CAD Annual BMP Blood Test 11/03/2024 Influenza Vaccine (#1) 2024 , 12/12/2022, 02/24/2022 Colorectal Cancer Screening: Colonoscopy 11/11/2034 11/11/2024, 11/06/2024 RSV Immunization Adult Patients (1 - 1-dose 75+ series) 2037 Hepatitis A Vaccines Aged Out 04/28/2013 No long er eligible based on patient's age to complete this topic COVID-19 Vaccine Completed 02/29/2024, 12/12/2022, 02/24/2022 HIB [...] patient's age to complete this topic Meningococcal B Vaccine Aged Out No l onger eligible based on patient's age to complete this topic RSV Immunization Patients Under 20 months Aged Out No longer eligible b ased on patient's age to complete this topic Varicella Vaccines Aged Out No longer eligible based on patient's age to complete this topic Procedures Procedure Name Priority Date/Time Associated Diagnosis Comments COLONOSCOPY Routine 11/11/2024 10:00 AM EDT Rectal bleeding Change in bowel habits TISSUE EXAM Routine 11/11/2024 9:56 AM EDT Rectal bleeding Change in bowel habits COLONOSCOPY Routine 11/06/2024 2:02 PM EDT from Last 3 Months Results * COLONOSCOPY Anesthesia - MAC; [facility] ENDOSCOPY (11/11/2024 10:00 AM EDT) Only the most recent of2 resultswithin the time period is included. Anatomical Region Laterality Modality Endoscopy 11/11/2024 9:40 AM EDT Impressions 11/11/2024 10:04 AM EDT - The examined portion of the ileum was normal. - Diverticulosis in the entire examined colon. - Congested, erythematous, friable (with contact bleeding) and granular mucosa in the recto-sigmoid colon. Biopsied. - Non-bleeding internal hemorrhoids. - The examination was otherwise normal on direct and retroflexion views. Recommendation: - Discharge patient to home. - Low fiber diet. - Cipro (ciprofloxacin) 500 mg PO BID for 2 weeks. - Flagyl (metronidazole) 250 mg PO TID for 2 weeks. - Continue present medications. - Return to GI clinic as previously scheduled. Narrative 11/11/2024 10:04 AM EDT [facility] GI Patient Name: Jah Christianson Procedure Date: 11/11/2024 9:40 AM Date of : 1960 Age: 64 Room: ROOM 15 Gender: Male Note Status: Finalized Attending MD: Vinay Correia MD, Procedure Date No Time: 11/11/2024 Procedure: Colonoscopy Indications: Rectal bleeding, Change in bowel habits Providers: Vinay Correia MD Referring MD: Vinay Correia MD Medicines: Monitored Anesthesia Care Complications: No immediate complications. Estimated Blood Loss: Estimated blood loss was minimal. Procedure: Pre-Anesthesia Assessment: - ASA Grade Assessment: II - A patient with mild systemic disease. - After reviewing the risks and benefits, the patient was deemed in satisfactory condition to undergo the procedure. After I obtained informed consent, the scope was passed under direct vision. Throughout the procedure, the patient's blood pressure, pulse, and oxygen saturations were monitored continuously.The Olympus Pediatric Colonoscope was introduced through the anus and advanced to the terminal ileum, with identification of the appendiceal orifice and IC valve. The colonoscopy was performed without difficulty. The patient tolerated the procedure well. The quality of the bowel preparation was good. Findings: The terminal ileum appeared normal. Scattered small-mouthed diverticula were found in the entire colon. A segmental area of severely congested, erythematous, friable (with contact bleeding) and granular mucosa was found in the recto-sigmoid colon. Biopsies were taken with a cold forceps for histology. Estimated blood loss was minimal. Non-bleeding internal hemorrhoids were found during retroflexion. The hemorrhoids were small. The exam was otherwise without abnormality on direct and retroflexion views. Procedure Code(s): --- Professional --- 49274, Colonoscopy, flexible; with biopsy, single or multiple Diagnosis Code(s): --- Professional --- K62.5, Hemorrhage of anus and rectum R19.4, Change in bowel habit CPT copyright 2020 [employer]. All rights reserved. The codes documented in this report are preliminary and upon assistant signal maintainer review may be revised to meet current compliance requirements. Vinay Correia MD 11/11/2024 10:03:56 AM This report has been signed electronically.Vinay Correia MD Number of Addenda: 0 Note Initiated On: 11/11/2024 9:40 AM Scope In: Scope Out: Endoscopy Department at [facility] - [address] [place] [id number] Procedure Note Vinay Correia MD - 11/11/2024 [facility] GI Patient Name: Jah Christianson Procedure Date: 11/11/2024 9:40 AM Date of : 1960 Age: 64 Room: ROOM 15 Gender: Male Note Status: Finalized Attending MD: Vinay Correia MD, Procedure Date No Time: 11/11/2024 Procedure: Colonoscopy Indications: Rectal bleeding, Change in bowel habits Providers: Vinay Correia MD Referring MD: Vinay Correia MD Medicines: Monitored Anesthesia Care Complications: No immediate complications. Estimated Blood Loss: Estimated blood loss was minimal. Procedure: Pre-Anesthesia Assessment: - ASA Grade Assessment: II - A patient with mild systemic disease. - After reviewing the risks and benefits, thepatient was deemed in satisfactory condition to undergo the procedure. After I obtained informed consent, the scope was passed under direct vision. Throughout theprocedure, the patient's blood pressure, pulse, and oxygen saturations were monitored continuously.The Olympus Pediatric Colonoscope was introduced through theanus and advanced to the terminal ileum, with identification of the appendiceal orifice and IC valve. The colonoscopy was performed without difficulty. The patient tolerated the procedurewell. The quality of the bowel preparation was good. Findings: The terminal ileum appeared normal. Scattered small-mouthed diverticula were found inthe entire colon. A segmental area of severely congested,erythematous, friable (with contact bleeding) and granular mucosa was found in the recto-sigmoid colon. Biopsies were taken with a cold forceps for histology. Estimated blood loss was minimal. Non-bleeding internal hemorrhoids were found during retroflexion. The hemorrhoids were small. The exam was otherwise without abnormality ondirect and retroflexion views. Procedure Code(s): --- Professional --- 72257, Colonoscopy, flexible; with biopsy, singleor multiple Diagnosis Code(s): --- Professional --- K62.5, Hemorrhage of anus and rectum R19.4, Change in bowel habit CPT copyright 2020 [employer]. All rights reserved. The codes documented in this report are preliminary and upon assistant signal maintainer reviewmay be revised to meet current compliance requirements. Vinay Correia MD 11/11/2024 10:03:56 AM This report has been signed electronically.Vinay Correia MD Number of Addenda: 0 Note Initiated On: 11/11/2024 9:40 AM Scope In: Scope Out: Endoscopy Department at [facility] - [address] [place] [phone] IMPRESSION: - The examined portion of the ileum was normal. - Diverticulosis in the entire examined colon. - Congested, erythematous, friable (with contact bleeding) and granular mucosa in the recto-sigmoid colon. Biopsied. - Non-bleeding internal hemorrhoids. - The examination was otherwise normal on directand retroflexion views. Recommendation: - Discharge patient to home. - Low fiber diet. - Cipro (ciprofloxacin) 500 mg PO BID for 2weeks. - Flagyl (metronidazole) 250 mg PO TID for 2weeks. - Continue present medications. - Return to GI clinic as previously scheduled. 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 - No dysplasia identified. Note: Although the most prominent pattern in this specimen are the acute/active colitis, the presence of foci of basilar lymphoplasmacytosis and mild crypt architectural distortion are features of chronic mucosal injury (chronic colitis). The changes are not etiologically specific, and could be seen in relation to diverticular disease (noted in the endoscopy report), medication effects, infection, inflammatory bowel disease or other causes. Correlation with clinical and endoscopic findings is recommended. 9:57 AM EDT [facility] Gross Description A. Large Intestine, Rectum, recto-sigmoid biopsy: Labeled recto-sig LI rectum . Received in formalin are seven soft, caldera-red tissue fragments, ranging from 0.2 cm to 0.3 cm in greatest diameters, which are wrapped in paper and submitted in toto in one cassette, seven pieces, multiple levels on one slide. 9:57 AM EDT [facility] Disclaimer Unless otherwise specified, all tissue is 10% NB formalin fixed and paraffin embedded. 9:57 AM EDT [facility] Tissue Rectum structure / Unknown 11/11/2024 9:56 AM EDT 11/11/2024 11:32 AM EDT us Vinay Correia MD LAB PATHOLOGY ORDERABLES Lizet layton Result [facility] [address] [place] [address], from Last 3 Months Insurance [employer] Care Teams Rubber Stamp Assembler Relationship Specialty Start Date End Date Jah Storey MD [address] [place] [id number] PCP - General Internal Medicine 04/10/24
--- OUTSIDE RECORDS SUMMARY | 2025-01-02 15:09 | XMS_ITS | Encounter Summary ---
Author Organization [facility] Address [address] [facility] [address] [place] [phone] Phone Care Team Providers Care Crew Foreman Name Role Phone Jah Storey MD Primary Care Provider [phone] Encounter Details Date Type Department Care Team (Late st Contact Info) Description 04/18/2024 Procedure Pass [facility] [address] [place] [id number] Social History Tobacco Use Types Packs/Day Years Used Date Smoking Tobacco: Former Cigarettes 1 50.8 S tarted: 03/19/1974 Comments:I am happy I quit a nd never relapsed. Alcohol Use Standard Drinks/Week Comments [...] Orientation Asexual 01/23/2024 9: 23 AM EST documented as of this encounter Plan of Treatment Not on file documented as of this encounter Visit Diagnoses Not on filedocumented in this encounter Care Teams Crew Foreman Relationship Specialty Start Date End Date Jha Storey MD PCP - General Internal Medicine 07/06/23 documented as of this encounter Additional Source Comments The information contained in this document represents components of the legal health record. It is not the complete legal health record.[facility]
== END 2025-01-02 12:48 | disposition home or self-care (01) ==
LOC: HO.CT 12:47
PROVIDERS: PCP Internal Medicine; Visit Provider Nurse Practitioner Family
DX: R91.8 Other nonspecific abnormal finding of lung field (principal)
CPT/HCPCS: 71250

== ENCOUNTER → 2025-01-02 12:49 | Outpatient (BNV) | payer OTHER, SELFPAY | PROVIDERS: PCP Internal Medicine; Visit Provider Radiology Diagnostic Radiology | DX: R91.1 Solitary pulmonary nodule (principal); K44.9 Diaphragmatic hernia without obstruction or gangrene; K57.30 Diverticulosis of large intestine without perforation or abscess without bleeding | CPT/HCPCS: 71250 ==

== ENCOUNTER 2025-01-09 10:37 | Outpatient (REF) | payer OTHER, SELFPAY ==
[2025-01-09 14:37] LABS: MANUAL DIFF FLAG NO
[2025-01-09 14:48] LABS: Hematocrit 48.9 % (42.0-52.0); Hemoglobin 16.8 g/dl (14.0-18.0); Imm Gran Abs Auto 0.04 X10*3/uL (0.00-0.03); Imm Gran Pct Auto 0.5 % (0.0-0.4); Lymphocytes Absolute Auto 1.3 X10*3/uL (1.2-4.9); Mean Corpuscular HGB Conc 34.4 g/dl (31.0-36.0); Mean Corpuscular Hemoglobin 32.6 pg (27.0-33.0); Mean Corpuscular Volume 94.8 fL (80.0-98.0); NRBC Abs Auto 0.000 X10*3/uL (0.0-0.012); NRBC Pct Auto 0.0 /100WBC (0.0-0.2); Platelet Count 227 X10*3/uL (160-400); Red Blood Count 5.16 X10*6/uL (4.60-5.80); White Blood Count 8.3 X10*3/uL (4.8-10.8)
[2025-01-12 17:12] LABS: Class Alternaria alternata 0; Class Aspergillus fumigatus 0; Class Bermuda Grass 2; Class Birch 0/1; Class Cat Dander 0; Class Cladosporium herbarum 0; Class Cockroach 0; Class Common Ragweed 3; Class Cottonwood 0; Class Derm. pterony 0; Class Dermatophagoides farinae 0; Class Dog Dander 0; Class Elm 0; Class Maple Box Elder 0; Class Mountain Cedar 0; Class Mouse Urine Protein 0; Class Mugwort 2; Class Oak 0; Class Penicillium crysogenum 0; Class Rough Pigweed 0; Class Sheep Sorrel 0; Class Sycamore 0; Class Timothy Grass 2; Class Walnut Tree 0; Class White Ash 0; Class White Mulberry 0; D002 - IgE D farinae <0.10 kU/L; E001 - IgE Cat Dander <0.10 kU/L; E005 - IgE Dog Dander <0.10 kU/L; G006 - IgE Timothy Grass 2.90 kU/L; I006-IgE Cockroach, German <0.10 kU/L; M002 - IgE Cladosporium herbar <0.10 kU/L; M003 - IgE Aspergillus fumigat <0.10 kU/L; M006 - IgE Alternaria alternat <0.10 kU/L; T001 IgE Maple/Box Elder <0.10 kU/L; T006 - IgE Cedar, Mountain <0.10 kU/L; T007 - IgE Oak, White <0.10 kU/L; T008 IgE Elm, American <0.10 kU/L; T010 - IgE Walnut <0.10 kU/L; T011 - IgE Maple Leaf Sycamore <0.10 kU/L; T014 - IgE Cottonwood <0.10 kU/L; T015 - IgE Ash, White <0.10 kU/L; T070 - IgE White Mulberry <0.10 kU/L; W001 - IgE Ragweed, Short 8.79 kU/L; W006 - IgE Mugwort 3.23 kU/L; W014 IgE Pigweed, Common <0.10 kU/L; W018 IgE Sheep Sorrel <0.10 kU/L
== END 2025-01-09 10:38 | disposition home or self-care (01) ==
LOC: HO.WFDLDS 10:37
PROVIDERS: PCP Internal Medicine; Visit Provider Nurse Practitioner Family
DX: R05.3 Chronic cough (principal); R09.82 Postnasal drip; Z91.09 Other allergy status, other than to drugs and biological substances
CPT/HCPCS: 36415; 82785; 85025; 86003

== ENCOUNTER 2025-01-09 10:37 | Outpatient (AMB) | payer OTHER, SELFPAY ==
--- OUTSIDE RECORDS SUMMARY | 2024-06-12 17:22 | XMS_ITS ---
Author Organization [facility] Address [address] [place], [place] [phone] Care Team Providers Care Medicine Assistant Name Role Phone MICHAEL HIDALGO Primary Care Provider REASON FOR VISIT Testosterone Gel Packets no longer available. MEDICATIONS Medication SIG (Take, Route, Frequency, Duration) Notes Start Date End Date Status AndroGel Pump 20.25 MG/ACT (1.62%) 2 pumps to skin in the morning to shoulder, upper arms or abdomen Transdermal Once a day for 90 days 06/13/2024 Active Encounters Encounter Location Date Provider Diagnosis [address] [address] 06/12/2024 MICHAEL HIDALGO Androgen deficiency E29.1 ASSESSMENTS Encounter Date Diagnosis Assessment Notes Treatment Notes Treatment Clinical Notes Section Notes 06/12/2024 Androgen deficiency (ICD-10 - E29.1) PLAN OF TREATMENT Medication Medication Name Sig Start Date Stop Date Notes AndroGel Pump 20.25 MG/ACT (1.62%) 2 pumps to skin in the morning to shoulder, upper arms or abdomen Transdermal Once a day for 90 days 06/13/2024 Testosterone 25 MG/2.5GM (1%) 1 packet to skin in the morning to shoulder and upper arms Transdermal Once a day 05/30/2024 OK for early fill; Michael [place] travel planned for [place] end of the [place]. Thank you Next Appt Details Provider Name:MICHAEL HIDALGO , 04/01/2025 09:00:00 AM, [address] [place] [address], [phone],
--- OUTSIDE RECORDS SUMMARY | 2024-06-20 18:21 | XMS_ITS ---
Author Organization [facility] Address [address] [place], [place] [phone] Care Team Providers Care Tunnel Mucker Name Role Phone MICHAEL HIDALGO Primary Care Provider [phone] REASON FOR VISIT (fyi) BArium swallow Encounters Encounter Location Date Provider Diagnosis [facility] [address] [place] [address] 06/20/2024 MICHAEL HIDALGO PLAN OF TREATMENT Next Appt Details Provider Name:MICHAEL HIDALGO , 04/01/2025 09:00:00 AM, [address] [place], [address],
--- OUTSIDE RECORDS SUMMARY | 2024-09-01 11:55 | XMS_ITS ---
Author Organization [facility] Address [address] [place], [place] [phone] Care Team Providers Care Filer Metal Patterns Name Role Phone MICHAEL HIDALGO Primary Care Provider REASON FOR VISIT Blood in stools again Encounters Encounter Location Date Provider Diagnosis [facility] [address] [place] [address] 09/01/2024 MICHAEL HIDALGO PLAN OF TREATMENT Next Appt Details Provider Name:MICHAEL HIDALGO , 04/01/2025 09:00:00 AM, [address] [place], [address],
--- OUTSIDE RECORDS SUMMARY | 2024-09-06 10:37 | XMS_ITS ---
Author Organization [facility] Address [address] [place], [place] [id number] Care Team Providers Care Addiction Specialist Name Role Phone MICHAEL HIDALGO Primary Care Provider REASON FOR VISIT RE:Blood in stools again Encounters Encounter Location Date Provider Diagnosis [facility] [address] [place] [address] 09/06/2024 MICHAEL HIDALGO PLAN OF TREATMENT Next Appt Details Provider Name:MICHAEL HIDALGO , 04/01/2025 09:00:00 AM, [address] [place], [address],
--- OUTSIDE RECORDS SUMMARY | 2024-09-12 09:55 | XMS_ITS ---
Author Organization [facility] Address [address] [place], [place] [id number] Care Team Providers Care Histology Manager Name Role Phone MICHAEL HIDALGO Primary Care Provider [phone] REASON FOR REFERRAL Reason 09/12/24 w appt Appt Urgent eval Diagnosis 1 Rectal bleeding (K62 .5) Referral Organization [facility] Referring Provider First Name MICHAEL Referring Provider Last Name ROCKY Referring Provider Speciality Internal M edicine Referred Provider SILVA CORREIA Referred Provider Specialty Gastroentero logy General Notes Simona SILVERMAN Admin 04:16:33 PM > faxed medical referral, note and most recent labs to [phone]>last colonoscopy in chart is from [address] Correia Referral Priority Urgent REASON FOR VISIT RE:RE:Blood in stools again Encounters Encounter Location Date Provider Diagnosis [facility] [address] [place] [address] 09/12/2024 MICHAEL HIDALGO Rectal bleeding K62.5 ASSESSMENTS Encounter Date Diagnosis Assessment Notes Treatment Notes Treatment Clinical Notes Section Notes 09/12/2024 Rectal bleeding (ICD-10 - K62.5) PLAN OF TREATMENT Referrals Referral Date Details 09/12/24 w appt Appt Urgent SILVA sinclair Next Appt Details Provider Name:MICHAEL HIDALGO , 04/01/2025 09:00:00 AM, [address] [place], [address], Consultation Request Notes Referral Date Referring Provider Referred Provider Not es 09/12/2024 MICHAEL HIDALGO BARRY 09/12/24 w a ppt Appt Urgent eval
--- OUTSIDE RECORDS SUMMARY | 2024-09-12 13:31 | XMS_ITS ---
Author Organization [facility] Address [address] [place], [place] [phone] Care Team Providers Care Research & Insights Executive Name Role Phone MICHAEL HIDALGO Primary Care Provider REASON FOR VISIT (W) RE:RE:RE:Blood in stools again Encounters Encounter Location Date Provider Diagnosis [address] [address] 09/12/2024 MICHAEL HIDALGO PLAN OF TREATMENT Next Appt Details Provider Name:MICHAEL HIDALGO , 04/01/2025 09:00:00 AM, [address] [place], [address],
--- OUTSIDE RECORDS SUMMARY | 2024-09-15 08:34 | XMS_ITS ---
Author Organization [facility] Address [address] [place], [place] [phone] Care Team Providers Care Sign Wirer Name Role Phone MICHAEL HIDALGO Primary Care Provider [phone] REASON FOR VISIT RE:Appointment Encounters Encounter Location Date Provider Diagnosis [facility] [address] [place] [address] 09/15/2024 MICHAEL HIDALGO PLAN OF TREATMENT Next Appt Details Provider Name:MICHAEL HIDALGO , 04/01/2025 09:00:00 AM, [address] [place], [address],
--- OUTSIDE RECORDS SUMMARY | 2024-10-05 23:40 | XMS_ITS ---
Author Organization [facility] Address [address] [place], [place] [phone] Care Team Providers Care Director Safety Council Name Role Phone ROCKYMICHAEL MONTAGUE Primary Care Provider [phone] REASON FOR REFERRAL Reason (Manually faxed for appt after 10/18/24, 10/06/24) Urgent appt Rectal Blled Diagnosis 1 Rectal bleeding (K62 .5) Referral Organization [facility] Referring Provider First Name MICHAEL Referring Provider Last Name ROCKY Referring Provider Speciality Internal M edicine Referred Provider SILVA JORDAN Referred Provider Specialty Gastroentero logy Referral Priority Urgent REASON FOR VISIT Bleeding from bowels Encounters Encounter Location Date Provider Diagnosis [facility] [address] [place] [address] 10/06/2024 MICHAEL ROCKY Rectal bleeding K62.5 ASSESSMENTS Encounter Date Diagnosis Assessment Notes Treatment Notes Treatment Clinical Notes Section Notes 10/06/2024 Rectal bleeding (ICD-10 - K62.5) PLAN OF TREATMENT Referrals Referral Date Details (Manually faxed for appt after 10/18/24, 10/06/24) Urgent appt Rectal BlledSILVA Next Appt Details Provider Name:MICHAEL HIDALGO , 04/01/2025 09:00:00 AM, [address] [place], [address], Consultation Request Notes Referral Date Referring Provider Referred Provider Not es 10/06/2024 MICHAEL HIDALGO BARRY (Manually fa xed for appt after 10/18/24, 10/06/24) Urgent appt Rectal Blled
--- OUTSIDE RECORDS SUMMARY | 2024-12-16 09:00 | XMS_ITS ---
Author Organization [facility] Address [address] [place], [place] [phone] Care Team Providers Care Legal Operations Manager Name Role Phone MICHALE HIDALGO Primary Care Provider ALLERGIES No Known Allergies REASON FOR VISIT 43/ f/u, would like flu vaccine MEDICATIONS Medication SIG (Take, Route, Frequency, Duration) Notes Start Date End Date Status Vitamin D3 25 MCG (1000 UT) 1 tablet Orally Once a day for 90 days 05/29/2023 Active Irbesartan 300 mg TAKE 1 TABLET DAILY DIRECTED Active Allopurinol 300 MG 1 tablet Oral Once a day for 90 days 04/27/2022 Active amLODIPine Besylate 2.5 mg TAKE 1 TABLET DAILY DIRECTED Active AndroGel Pump 20.25 MG/ACT (1.62%) 2 pumps to skin in the morning to shoulder, upper arms or abdomen Transdermal Once a day for 90 days 12/16/2024 Active Amoxicillin 500 MG 1 capsule Orally madelyn ry 8 hrs for 5 day(s) Active Propranolol HCl 10 mg TAKE 1 TABLET JENNIFER Y NEEDED DIRECTED Active EPINEPHrine 0.3 MG/0.3ML inject 0.3 mill iliter by intramuscular route once as needed for anaphylaxis Injection 11/15/2016 Active ZyrTEC 10 MG 1 tablet Orally Once a day for 30 day(s) Active Sildenafil Citrate 50 mg TAKE 1 TABLET D AILY NEEDED DIRECTED Active IMMUNIZATIONS Vaccine Route Administration Date Status Comme nts Influenza, Flublok IM Intramuscular 12/16/2024 Administere d SOCIAL HISTORY Tobacco Use: Social History Observation Description Date Details (start date - stop date) Former Smoker NA - NA Sex Assigned At : Social History Observation Description Sex Assigned At Unknown Smoking Question Answer Notes Are you a: former smoker How long has it been since you last smoked? > 10 years PROBLEMS Problem Type ICD Code Onset Dates Problem Status W/U Status Risk SNOMED Code Notes Problem Acute anemia (D64.9) Active confirmed [id number] VITAL SIGNS Height 67.50 in 12/16/2024 Weight 166 lbs 12/16/2024 Blood pressure systolic 126 mm Hg 12/17/19 25 Blood pressure diastolic 80 mm Hg 025 BMI 25.61 kg/m2 12/16/2024 Encounters Encounter Location Date Provider Diagnosis [facility] [address] [place] [address] 12/16/2024 MICHAEL AHUJAFORD Acute colitis K52.9 ; Acute anemia D64.9 ; Essential (primary) hypertension I10 ; Testicular hypofunction E29.1 ; Gout, unspecified M10.9 and Encounter for immunization Z23 ASSESSMENTS Encounter Date Diagnosis Assessment Notes Treatment Notes Treatment Clinical Notes Section Notes 12/16/2024 Acute colitis (ICD-10 - K52.9) 1. Acute colitis with significant rectal bleeding: Stabilized post antibiotics from GI after colonoscopy. Will follow for any recurrence 2. Anemia: Recheck CBC and iron studies. Suspect may need supplementation 3. Hypertension: Stable on current irbesartan and amlodipine. Will maintain current dosing 4. Androgen deficiency: Renewed testosterone today we will plan to update levels at his physical 4. Gout: No recent flares. Continue allopurinol 12/16/2024 Acute anemia (ICD-10 - D64.9) 1. Acute colitis with significant rectal bleeding: Stabilized post antibiotics from GI after colonoscopy. Will follow for any recurrence 2. Anemia: Recheck CBC and iron studies. Suspect may need supplementation 3. Hypertension: Stable on current irbesartan and amlodipine. Will maintain current dosing 4. Androgen deficiency: Renewed testosterone today we will plan to update levels at his physical 4. Gout: No recent flares. Continue allopurinol 12/16/2024 Essential (primary) hypertension (ICD-10 - I10) 1. Acute colitis with significant rectal bleeding: Stabilized post antibiotics from GI after colonoscopy. Will follow for any recurrence 2. Anemia: Recheck CBC and iron studies. Suspect may need supplementation 3. Hypertension: Stable on current irbesartan and amlodipine. Will maintain current dosing 4. Androgen deficiency: Renewed testosterone today we will plan to update levels at his physical 4. Gout: No recent flares. Continue allopurinol 12/16/2024 Testicular hypofunction (ICD-10 - E29.1) 1. Acute colitis with significant rectal bleeding: Stabilized post antibiotics from GI after colonoscopy. Will follow for any recurrence 2. Anemia: Recheck CBC and iron studies. Suspect may need supplementation 3. Hypertension: Stable on current irbesartan and amlodipine. Will maintain current dosing 4. Androgen deficiency: Renewed testosterone today we will plan to update levels at his physical 4. Gout: No recent flares. Continue allopurinol 12/16/2024 Gout, unspecified (ICD-10 - M10.9) 1. Acute colitis with significant rectal bleeding: Stabilized post antibiotics from GI after colonoscopy. Will follow for any recurrence 2. Anemia: Recheck CBC and iron studies. Suspect may need supplementation 3. Hypertension: Stable on current irbesartan and amlodipine. Will maintain current dosing 4. Androgen deficiency: Renewed testosterone today we will plan to update levels at his physical 4. Gout: No recent flares. Continue allopurinol 12/16/2024 Encounter for immunization (ICD-10 - Z23) VIS sheet provided to patient influenza vaccine administered patient counseled 1. Acute colitis with significant rectal bleeding: Stabilized post antibiotics from GI after colonoscopy. Will follow for any recurrence 2. Anemia: Recheck CBC and iron studies. Suspect may need supplementation 3. Hypertension: Stable on current irbesartan and amlodipine. Will maintain current dosing 4. Androgen deficiency: Renewed testosterone today we will plan to update levels at his physical 4. Gout: No recent flares. Continue allopurinol PLAN OF TREATMENT Medication Medication Name Sig Start Date Stop Date Notes AndroGel Pump 20.25 MG/ACT (1.62%) 2 pumps to skin in the morning to shoulder, upper arms or abdomen Transdermal Once a day for 90 days 12/16/2024 Treatment Notes Assessment Notes Encounter for immunization VIS sheet pro vided to patient influenza vaccine administered patient counseled Next Appt Details Follow Up: CPE mar, Reason: Provider Name:MICHAEL AHUJAFORD , 04/01/2025 09:00:00 AM, [address] [facility], [place], [address], Progress Notes * Examination Category Sub-Category Detail Notes Category Not es General Examination Heart: RSR, normal S1S2 Lungs: clear to auscultatio n Abdomen: soft, non tender/non distended, no guarding or rigidity Extremities: no edema General Appearance no apparent distress , pleasant Psych: alert, oriented X 3 Other normal affect
--- OUTSIDE RECORDS SUMMARY | 2024-12-17 09:16 | XMS_ITS ---
Author Organization [facility] Address [address] [place], [place] [phone] Care Team Providers Care Dog Groomer Name Role Phone MICHAEL HIDALGO Primary Care Provider [phone] REASON FOR VISIT Labs Encounters Encounter Location Date Provider Diagnosis [facility] [address] [place] [address] 12/17/2024 MICHAEL HIDALGO PLAN OF TREATMENT Next Appt Details Provider Name:MICHAEL HIDALGO , 04/01/2025 09:00:00 AM, [address] [place], [address],
--- NOTE | 2025-01-09 10:38 | MHC.OFFVIS ---
Vital Signs 01/09/25 10:39 Height 5 ft 9 in Weight 166 lb 6 oz BMI 24.6 BP 118/82 Blood Pressure Location Rt brachial Position Sitting Pulse 90 Pulse Source Pulse Oximeter Pulse Oximetry (%) 93 Oxygen Delivery Method Room Air Intake Visit Reasons: chronic cough/CT Follow Up Allergies celery Allergy (Severe, Uncoded 01/09/25 10:42) Anaphylaxis micronesian grapes Allergy (Severe, Uncoded 01/09/25 10:42) Anaphylaxis HPI HPI chronic cough/CT Follow Up: Details: Jah is a pleasant 64 year old male, former smoker with less than 10 pack year history, with underlying chronic cough, paraesophageal hernia repair 03/2024, and seasonal allergies. He was initially referred by PCP for pulmonary evaluation for persistent dry cough, occasionally productive since randy RSV and COVID. He has been trialed on Trelelgy, nasal sprays, prednisone and levaquin with minimal change in symptoms. Prior PFT did not reveal any obstructive or restrictive defects, normal lung volumes and DLCO. He underwent hernia repair March 2024 and reported resolution of cough up until a few months ago. He continues with dry cough, productive with clear sputum in the morning then dry cough through out the day. Denies chest congestion, dyspnea, wheezing or chest tightness. He has been using Prevacid QD with improved reflux although not completely resolved. Today he presents to review chest CT results. Prior CT chest 12/2023 revealed 4 mm pulmonary nodule of RUL. [facility] Medical History (Updated 04/22/24 @ 00:01 by Luna Tapia) Multiple pulmonary nodules Paraesophageal hernia Social History Patient Tobacco Use Status: Former Tobacco user Tobacco use type: Cigarette Cigarette Packs Per Day: 1 Years Smoked: 10 Current occupational status: employed Current occupation: software deployment engineer, right hand dominant Review of Systems Const Denies chills, Denies excessive sweating, Denies fever(s), Denies headache(s) and Denies night sweats Eyes Denies dry eyes and Denies irritation ENT Reports Normal hearing present, Denies headache(s), Denies nasal congestion, Denies nasal discharge, Reports post nasal drip and Denies sore throat Card Denies chest pain, Denies chest pain at rest, Denies chest pain with activity, Denies claudication, Denies leg edema, Denies dyspnea, Denies dyspnea on exertion, Denies orthopnea and Denies paroxysmal nocturnal dyspnea Resp Denies chest congestion, Reports cough, Denies hemoptysis, Denies pain on inspiration, Denies pain with cough, Denies dyspnea, Denies dyspnea on exertion, Denies stridor and Denies wheezing Musc Denies myalgias Neuro Reports Normal hearing present and Denies headache(s) Endo Denies excessive sweating Mario/Lymph Denies lymphadenopathy Aller/Immun Reports seasonal rhinorrhea and Denies wheezing Physical Exam Vital Signs: Last Vital Signs Pulse 90 01/09/25 10:39 BP 118/82 01/09/25 10:39 Pulse Ox 93 01/09/25 10:39 Oxygen Delivery Method Room Air 01/09/25 10:39 BMI result Body Mass Index 24.6 Const General: cooperative, healthy appearing, comfortable, no acute distress, well developed and alert Orientation/consciousness: patient oriented x3 Limitations: no limitations HEENT Head: Yes normal to inspection, Yes normocephalic and Yes atraumatic Ears: hearing grossly normal bilaterally and external ears normal Eyes General: appearance normal, both eyes and all related structures Eyelids: Yes eyelids normal Sclerae: sclerae normal EOM: EOMs intact bilaterally Neck Neck: Yes normal visual inspection and Yes no lymphadenopathy Lymphatic: no lymphadenopathy noted Chest Chest palpation & inspection: normal inspection of the chest Resp Other: occasional throat clearing throughout visit Effort & Inspection: normal respiratory effort, able to speak in complete sentences, no audible wheezes, no cough, no stridor, not tachypneic, no tripod positioning and no use of accessory muscles Auscultation: clear to auscultation bilaterally Cardio Jugular venous distension: no JVD Rate: regular rate Rhythm: regular rhythm Skin Other: warm, dry General skin exam: no rashes or lesions noted Neuro General: patient oriented x3 Cranial nerves: Yes Normal hearing present Cognition (Neuro): normal cognition Gait exam (Neuro): Normal gait present Extrem General: Yes normal to inspection, Yes capillary refill normal, Yes no clubbing, cyanosis or edema and Yes no pedal edema Psych Appearance: grossly normal and well kempt Speech and movement: Normal speech and movement present and Clear speech present Affect: normal affect Attitude: cooperative Thought process: Normal thought process present Thought content: Normal thought content present Insight: Good insight present (Psych) Judgement: Good judgement present (Psych) Results Reviewed Results Reviewed: [address] [address] [address] Scan Report Signed Patient: Jah Christianson MR#: [id number] : 1960 Acct:[id number] Age/Sex: 64 / M ADM Date: 01/02/25 Loc: HO.CT Attending Dr: Claudia Haynes NP Ordering Physician: Claudia Haynes NP Date of Service: 01/02/25 Procedure(s): CT chest wo IV con Accession Number(s): [id number] cc: Jah Storey MD; Claudia Haynes NP~ Report Number: [id number]: Total DLP = 152.00 mGy-cm Reason for Exam: R91.8 - Other nonspecific abnormal finding of lung field EXAMINATION: CT CHEST WITHOUT CONTRAST CLINICAL INFORMATION: R 91.8. Other nonspecific abnormal finding of the lung. COMPARISON: April 20, 2024. TECHNIQUE: Multidetector volumetric CT imaging of the chest was done. Axial MIP volume rendering provided. Sagittal and coronal reformatted images were obtained. This CT examination was performed using dose optimization techniques as appropriate, variously including the following: *Automated exposure control *Adjustment of mA and/or kV according to patient size (this includes techniques or standardized protocols for targeted exams where dose is matched to indication/reason for exam; i.e. extremities or head) *Use of iterative reconstruction technique DLP: 152 mGy centimeter. FINDINGS: POSTDOCTORAL FELLOW: Good inspiration. Cardiomediastinal silhouette size is normal. Upper extremities at the size of the head. Mild S-shaped curvature of the thoracolumbar spine. LUNGS: There are 2 mm noncalcified pulmonary nodules, subpleural right upper and middle lung lobes. No bronchiectasis. Honeycombing. No gross consolidation. Bilateral apical lung scarring. Respiratory airways patent. MEDIASTINUM: No mediastinal lymphadenopathy. Heart is not enlarged. No pericardial effusion. No pneumomediastinum. No aneurysm, thoracic aorta. No gross pulmonary nodules in the included thyroid gland. CORONARY ARTERY CALCIFICATION: None visualized on this study. PLEURA: No pleural plaques. No pneumothorax. No hemothorax. AXILLA: No specific prominent axillary lymph nodes. UPPER ABDOMEN: Moderate to large volume hiatal hernia. Few scattered diverticula, transverse colon. Collapsed gallbladder likely recent medial. OSSEOUS STRUCTURES: Mild multilevel spondylosis. Osteopenia. No acute fracture or gross listhesis. Sternum is intact. No acute rib fracture. Degenerative changes in the glenohumeral joints. CT/CT chest wo IV con IMPRESSION: Nonspecific less than 2 mm subpleural pulmonary nodules, right lung. If clinically concerned recommend 12 month follow-up. Hiatal hernia, moderate to large volume. Diverticular disease, transverse colon. Fleischner guidelines were followed. Electronically signed by: Alex Chacon MD 01/02/2025 01:49 PM EDT RP Dictated By: Alex Nelson MD Signed By: <Electronically signed by Alex Mcghee MD in OV> 01/02/25 1349 DD/ 1315 TD/TT: 01/02/25 1325 Bookmaker'S Clerk: Assessment & Plan Assessment & Plan (1) Chronic cough: Code(s): R05.3 - Chronic cough Category: Medical (2) Post-nasal drip: Code(s): R09.82 - Postnasal drip Category: Medical (3) Environmental allergies: Code(s): Z91.09 - Other allergy status, other than to drugs and biological substances Category: Medical Plan CT chest revealed moderate to large hiatal hernia with multiple scattered pulmonary nodules, stable from prior. Discussed patient reporting resolution of cough s/p hernia repair and the possibility of recurrence due to findings on chest CT. Report printed for patient to further discuss with surgeon who performed hernia repair. Previously patient had been trialed on inhalers, prednisone, abx and nasal sprays with no improvement in cough. He endorses seasonal allergies, undergoing allergen immunotherapy in the past, will send for RAST and consider daily antihistamine. All questions were answered and patient is in agreement of plan. Will follow up in 3 months or sooner if needed. Orders: Orders Resp Allergy Profile Region I 01/09/25 Z91.09 - Other allergy status, other than to drugs and biological substances Complete Blood Count Auto Diff 01/09/25 Z91.09 - Other allergy status, other than to drugs and biological substances Immunoglobulin E 01/09/25 Z91.09 - Other allergy status, other than to drugs and biological substances Coding Level of Care Code Est Pt Level 4 (39991) Diagnoses Chronic cough R05.3 Post-nasal drip R09.82 Environmental allergies Z91.09
[2025-01-09 10:39] VITALS: BP 118/82; PULSE 90; O2SAT 93; BMI 24.6
--- OUTSIDE RECORDS SUMMARY | 2025-01-09 12:13 | XMS_ITS | Encounter Summary ---
Author Organization [facility] Address [address] [facility] [address] [place] [address] Phone Care Team Providers Care Senior Manufacturing Supervisor Name Role Phone Jah Storey MD Primary Care Provider [phone] Encounter Details Date Type Department Care Team (Late st Contact Info) Description 04/18/2024 Procedure Pass [facility] [address] [place] [id number] Social History Tobacco Use Types Packs/Day Years [...] on filedocumented in this encounter Care Teams Senior Manufacturing Supervisor Relationship Specialty Start Date End Date Jah Storey MD [address] [place] [address] PCP - General Internal Medicine 07/06/23 documented as of this encounter Additional Source Comments The information contained in this document represents components of the legal health record. It is not the complete legal health record.[facility]
--- OUTSIDE RECORDS SUMMARY | 2025-01-09 12:13 | XMS_ITS | Clinical Summary ---
Author Organization [facility] Address [address] [address] Phone Care Team Providers Care Shirt Ironer Supervisor Name Role Phone Jah Storey MD Primary Care Provider [phone] Allergies Active Allergy Reactions Criticality Noted Date [...] Active ferrous sulfate 325 mg (65 mg guidiville iron) tablet Take 1 tablet (325 mg total) by mouth daily with breakfast. 04/21/2024 Active Active Problems Problem Noted Date Diagnosed Date Hiatal hernia 04/18/2024 Encounters Date Type Department Care Team Description 10/23/2024 Orders Only [facility] Administrative [address] [place] [address] Rickey Acevedo MD, PhD from Last 3 [...] this topic Medical Devices Implanted Type Area Die Casting Supervisor Device Identifier Shelf Expiration Date Model / Serial / Lot Titanium Clips In Testicles Insurance CIGNA PPO CIGNA PPO CIGNA PPO CIGNA PPO CIGNA PPO CIGNA PPO Advance Directives For more information, please contact: [phone] (9AM - 5PM [facility], Sunday-Sunday) * Full Code (Latest Code Status on File) Date Activated Date Inactivated Comments 04/18/2024 2:23 PM Question Answer Comments Code Status Confirmed With: Other (specify below ) Care Teams Shirt Ironer Supervisor Relationship Specialty Start Date End Date Jah Storey MD [address] [place] [address] PCP - General Internal Medicine 07/06/23 Additional Source Comments The information contained in this document represents components of the legal health record. It is not the complete legal health record.[facility]
--- OUTSIDE RECORDS SUMMARY | 2025-01-09 12:13 | XMS_ITS | Patient Health Record ---
Author Organization [facility] Address [address] [place], [place] [id number] Care Team Providers Care Mri Technician Name Role Phone MICHAEL HIDALGO Primary Care Provider ALLERGIES No Known Allergies REASON FOR REFERRAL Reason 09/12/24 w appt Appt Urgent eval Diagnosis 1 Rectal bleeding (K62 .5) Referral Organization [facility]ana Referring Provider First Name MICHAEL Referring Provider Last Name ROCKY Referring Provider Speciality Internal edicine Referred Provider SILVA CORREIA Referred Provider Specialty Gastroentero logy General Notes Simona SILVERMAN Admin 04:16:33 PM > faxed medical referral, note and most recent labs to [phone]>last colonoscopy in chart is from [address] Correia Referral Priority Urgent Reason (Manually faxed for appt after 10/18/24, 10/06/24) Urgent appt Rectal Blled Diagnosis 1 Rectal bleeding (K62 .5) Referral Organization [facility] Referring Provider First Name MICHAEL Referring Provider Last Name ROCKY Referring Provider Speciality Internal edicine Referred Provider SILVA CORREIA Referred Provider Specialty Gastroentero logy Referral Priority Urgent MEDICATIONS Medication SIG (Take, Route, Frequency, Duration) Notes Start Date End Date Status Vitamin D3 25 MCG (1000 UT) 1 tablet Orally Once a day for 90 days 05/29/2023 Active Amoxicillin 500 MG 1 capsule Orally madelyn ry 8 hrs for 5 day(s) Active Irbesartan 300 mg TAKE 1 TABLET DAILY DIRECTED Active Propranolol HCl 10 mg TAKE 1 TABLET JENNIFER Y NEEDED DIRECTED Active Allopurinol 300 MG 1 tablet Oral Once a day for 90 days 04/27/2022 Active amLODIPine Besylate 2.5 mg TAKE 1 TABLET DAILY DIRECTED Active AndroGel Pump 20.25 MG/ACT (1.62%) 2 pumps to skin in the morning to shoulder, upper arms or abdomen Transdermal Once a day for 90 days 12/16/2024 Active EPINEPHrine 0.3 MG/0.3ML inject 0.3 mill iliter by intramuscular route once as needed for anaphylaxis Injection 11/15/2016 Active ZyrTEC 10 MG 1 tablet Orally Once a day for 30 day(s) Active Sildenafil Citrate 50 mg TAKE 1 TABLET D AILY NEEDED DIRECTED Active IMMUNIZATIONS Vaccine Route Administration Date Status Comme nts Hepatitis A, Adult Unknown 04/28/2013 Administered Influenza, Fluarix Quad Unknown 01/23/2012 Administered Influenza, Flublok IM Intramuscular 12/27/2023 Administere d Influenza, Flublok IM Intramuscular 12/16/2024 Administere d Pfizer COVID-19,mRNA, LNP-S, PF, 30mcg/0.3mL dose Unknown 08/05/2020 Administered SARSCOV2 VAC 30 MCG TRS-SUCR Pfizer Unknown 08/26/2020 Administered SARSCOV2 VAC BVL 3MCG/0.2ML Pfizer Unknown 03/08/2021 Administered Td (Tetanus Diphtheria) IM Intramuscular 03/20/2007 Admini stered TDAP IM Intramuscular 12/18/2017 Administered Yellow Fever Unknown 04/28/2013 Administered SOCIAL HISTORY Tobacco Use: Social History Observation [...] W/U Status Risk SNOMED Code Notes Problem Essential (primary) hypertension (I10) Active confirmed 45377932 Problem Androgen deficiency (E29.1) Active confirmed 03451629 Problem Mixed hyperlipidemia (E78.2) Active confirmed 198100949 Problem Hepatitis (K75.9) Active confirmed 1282 74081 Problem Paraesophageal hernia (K44.9) Active confirmed 8290028 Problem Acute anemia (D64.9) Active confirmed 127309943 Problem Gastroesophageal reflux disease with esophagitis without hemorrhage (K21.00) Active confirmed 254428761 Problem Testicular hypofunction (E29.1) 05/31/19 10 Active confirmed Testicular hypofunction (964896993) Problem Gout, unspecified (M10.9) 09/16/19 11 Active confirmed Gout (65776019) VITAL SIGNS Blood pressure diastolic 80 mm Hg 12/16/2024 Height 67.50 in 12/16/2024 Blood pressure systolic 126 mm Hg 12/16/2024 Weight 166 lbs 12/16/2024 BMI 25.61 kg/m2 12/16/2024 Encounters Encounter Location Date Provider Diagnosis [address] [address] 01/22/[address] [address] 01/23/[address] [address] 03/26/2024 MICHAEL HIDALGO Paraesophageal herni a K44.9 and Essential (primary) hypertension I10 [address] [address] 03/27/2024 MICHAEL HIDALGO Elevated transaminas e level R74.[address] [address] 04/02/[address] [address] 04/03/[address] [address] 04/05/2024 MICHAEL HIDALGO Hepatitis K75.[address] [address] 04/14/[address] [address] 04/14/[address] [address] 04/16/2024 MICHAEL HIDALGO Transaminitis R74.[address] [address] 04/28/[address] [address] 04/29/[address] [place] [address] 05/01/2024 [facility] Transaminitis R74.01 and Essential (primary) hypertension I10 [facility] [address] [place] [address] 05/02/2024 [facility] [address] [place] [address] 05/17/2024 [facility] Androgen deficiency E29.1 [facility] [address] [place] [address] 05/17/2024 [facility] [address] [place] [address] 05/29/2024 [facility] [address] [place] [address] 05/30/2024 [facility] Androgen deficiency E29.1 [facility] [address] [place] [address] 06/02/2024 [facility] Gastroesophageal ref lux disease with esophagitis without hemorrhage K21.00 [facility] [address] [place] [address] 06/02/2024 [facility] [address] [place] [address] 06/12/2024 [facility] Androgen deficiency E29.1 [facility] [address] [place] [address] 06/20/2024 [facility] [address] [place] [address] 09/01/2024 [facility] [address] [place] [address] 09/06/2024 [facility] [address] [place] [address] 09/12/2024 [facility] Rectal bleeding K62. 5 [facility] [address] [place] [address] 09/12/2024 [facility] [address] [place] [address] 09/15/2024 [facility] [address] [place] [address] 10/06/2024 [facility] Rectal bleeding K62. 5 [facility] [address] [place] [address] 12/16/2024 [facility] Acute colitis K52.9 ; Acute anemia D64.9 ; Essential (primary) hypertension I10 ; Testicular hypofunction E29.1 ; Gout, unspecified M10.9 and Encounter for immunization Z23 [facility] [address] [place] [address] 12/17/2024 MICHAEL AHUJAFORD ASSESSMENTS Encounter Date Diagnosis Assessment Notes Treatment Notes Treatment Clinical Notes Section Notes 03/26/2024 Essential (primary) hypertension (ICD-10 - I10) 1. Paraesophageal hernia: Patient is low cardiovascular risk for proposed surgery. No additional preoperative testing required 2. Hypertension: Stable on present therapy. No changes made 03/26/2024 Paraesophageal hernia (ICD-10 - K44.9) 1. Paraesophageal hernia: Patient is low cardiovascular risk for proposed surgery. No additional preoperative testing required 2. Hypertension: Stable on present therapy. No changes made 03/27/2024 Elevated transaminase level (ICD-10 - R74.01) 04/05/2024 Hepatitis (ICD-10 - K75.9) 04/16/2024 Transaminitis (ICD-10 - R74.01) 05/01/2024 Essential (primary) hypertension (ICD-10 - I10) 1. Transaminitis : Recheck labs Has been abstaining from alcohol - Viral hepatitis labd neg US with fatty liver 2. Hypertension: Stableon presnet therapy No changes made today Update Echo No prior evidence of enlarged heart 05/01/2024 Transaminitis (ICD-10 - R74.01) 1. Transaminitis : Recheck labs Has been abstaining from alcohol - Viral hepatitis labd neg US with fatty liver 2. Hypertension: Stableon presnet therapy No changes made today Update Echo No prior evidence of enlarged heart 05/17/2024 Androgen deficiency (ICD-10 - E29.1) 05/30/2024 Androgen deficiency (ICD-10 - E29.1) CancelRx Response got Denied on 2024-06-13 13:03:20 for 'Testosterone 25 MG/2.5GM (1%) Gel'Pharmacy Notes: Prescription not found. Contact Pharmacy by other means 06/02/2024 Gastroesophageal reflux disease with esophagitis without hemorrhage (ICD-10 - K21.00) 06/12/2024 Androgen deficiency (ICD-10 - E29.1) 09/12/2024 Rectal bleeding (ICD-10 - K62.5) 12/16/2024 Acute colitis (ICD-10 - K52.9) 1. [...] 4. Gout: No recent flares. Continue allopurinol 10/06/2024 Rectal bleeding (ICD-10 - K62.5) 12/16/2024 Essential (primary) hypertension (ICD-10 - I10) [...] recent flares. Continue allopurinol PLAN OF TREATMENT Pending Test Test Name Order Date Echocardiogram 04/12/2023 Future Test Test Name Order Date LIPID PANEL 05/22/2023 Next Appt Details Provider Name:MICHAEL HIDALGO , 04/01/2025 09:00:00 AM, [address] [place], [address], Insurance Providers Payer Name Payer Address Payer Phone Subscriber Number Group Number Insured Name Patient Relationship to Insured Coverage Start Date Coverage End Date [facility] [employer] [facility] [address] [place] [address] [id number] MICHAEL CAMILO Self - patient is the insured MEDICAL (GENERAL) HISTORY Medical History History ICD Code Disease : Androgen Deficiency, Disease : Gout, Hypertension, GERD, Problems: Benign essential h ypertension, Added Date: 12/06/2014, Onset Date: 05/30/2009:Active Problems: Gastroesophageal r eflux disease, Added Date: 12/06/2014, Onset Date: 05/30/2009:Active Problems: Irritable bowel sy ndrome, Added Date: 12/06/2014, Onset Date: 05/30/2009:Active Surgical History Surgery Date(Month/Year) Hiatal Hernia - Dr. Mo Perez 03/21 04/12 Hospitalization History Reason Date(Month/Year) er sore shoulder px 2023 [facility] ER - left and right maisha k pain 04/20/24
--- OUTSIDE RECORDS SUMMARY | 2025-01-09 12:15 | XMS_ITS | Clinical Summary ---
Author Organization [facility] Address [address] [place] [address] Phone Care Team Providers Care Proof Technician Helper Name Role Phone Jah Storey MD Primary Care Provider [phone] Allergies Active Allergy Reactions Criticality Noted Date Comments Celery Anaphylaxis,Rash High 03/28/2024 Ragweed Sneezing 04/18/2024 Medications ascorbic acid (VITAMIN C) 500 mg tablet Take 1 tablet (500 mg total) by mouth daily. Active amLODIPine (NORVASC) 2.5 mg tablet Take 1 tablet (2.5 mg total) by mouth daily. 4 Active cholecalciferol (VITAMIN D-3) 25 mcg (1,000 unit) tablet Take 1 tablet (1,000 Units total) by mouth daily. 4 Active ferrous sulfate 325 mg (65 mg elemental iron) tablet Take 1 tablet (325 mg total) by mouth. Active doxycycline (MONODOX) 100 mg capsule TAKE 1 CAPSULE ONCE DAILY WITH DINNER.TAKE WITH FOOD AND WATER. DO NOT LAY DOWN 1 HOUR AFTER TAKING 4 Active diclofenac (CATAFLAM) 50 mg tablet TAKE 1 TAB ORALLY DAILY NEEDED FOR PAIN WITH FOOD, NOT WITH NONSTEROIDAL ANTI-INFLAMMATOR Y MEDS 4 Active testosterone (ANDROGEL) 1 % (25 mg/2.5gram) gel in packet APPLY 1 PACKET TRANSDERMAL TO SKIN DAILY IN THE MORNING TO SHOULDER AND UPPER ARMS FOR 90 DAYS 5 Active traMADoL (ULTRAM) 50 mg tablet take 1 tablet (50 mg) by mouth every 6 hours as needed for pain 5 Active allopurinoL (ZYLOPRIM) 300 mg tablet 5 Active cetirizine (ZyrTEC) 10 mg tablet Take 1 tablet (10 mg total) by mouth daily. Active irbesartan (AVAPRO) 300 mg tablet Take 1 tablet (300 mg total) by mouth daily. 4 Active polyethylene glycol (Golytely) 236-22.74-6.74 -5.86 gram solution Take 4L by mouth once for one dose. May substitue any PEG. Starting at 2PM the day before your procedure drink 1 8oz glasses at your own pace until you complete half of the gallon. Finish 2nd half of the gallon at 8PM. 4000 mL 5 Active bisacodyL (DULCOLAX) 5 mg EC tablet Take 2 tablets by mouth right before beginning bowel prep. See instructions provided by the office 2 tablet 5 Active lansoprazole (PREVACID) [address] capsule Take 1 capsule (15 mg total) by mouth 1 (one) time each day before breakfast. Do not crush or chew. Active Active Problems Problem Noted Date Diagnosed Date HTN (hypertension) 11/03/2024 Gout 11/03/2024 Pulmonary nodules 11/03/2024 Encounters Date Type Department Care Team Description 11/25/2024 Telephone Gastroenterology - 299 [facility] 299 [facility] [address] [place] [phone] Melita Bustamante PA 11/11/2024 9:46 AM EDT Anesthesia Event [facility] Endoscopy [address] [place] [phone] Grupo Castro MD 11/11/2024 9:06 AM EDT - 11/11/2024 11:59 PM EDT Hospital Encounter [facility] Endoscopy [address] [place] [phone] Vinay Correia MD Vermes, Rachie, CRNA Rectal bleeding; Change in bowel habits Discharge Disposition: Home or Self Care 11/10/2024 Telephone Gastroenterology - [place] [address] [facility] [address] [facility] [address] [place] [address] Sharmin Apodaca AILEEN 11/03/2024 11:00 AM EDT Consult Gastroenterology - 299 [facility] 299 [facility] [address] [place] [address] Melita Bustamante PA Rectal bleeding (Primary Dx); Change in bowel habits 11/03/2024 Telephone Gastroenterology - [address] [place] [address] Vinay Correia MD 10/09/2024 Telephone Gastroenterology - [address] [place] [address] Melita Bustamante PA from Last 3 Months [...] Months Results * COLONOSCOPY Anesthesia - MAC; [facility] ENDOSCOPY (11/11/2024 10:00 AM EDT) Only the [...] previously scheduled. Narrative 11/11/2024 10:04 AM EDT [facility] GI Patient Name: Jah Christianson [...] retroflexion views. Procedure Code(s): --- Professional --- 64606, Colonoscopy, flexible; with biopsy, single or multiple Diagnosis Code(s): --- Professional --- K62.5, Hemorrhage of anus and rectum R19.4, Change in bowel habit CPT copyright 2020 [employer]. All rights reserved. The codes documented in this report are preliminary and upon campground cleaning attendant review may be revised to meet current compliance requirements. Vinay Correia MD 11/11/2024 10:03:56 AM This report has been signed electronically.Vinay Correia MD Number of Addenda: 0 Note Initiated On: 11/11/2024 9:40 AM Scope In: Scope Out: Endoscopy Department at [facility] - [address] [place] [phone] Procedure Note Vinay Correia MD - 11/11/2024 [facility] GI Patient Name: Jah Christianson [...] retroflexion views. Procedure Code(s): --- Professional --- 39145, Colonoscopy, flexible; with biopsy, singleor multiple Diagnosis Code(s): --- Professional --- K62.5, Hemorrhage of anus and rectum R19.4, Change in bowel habit CPT copyright 2020 [employer]. All rights reserved. The codes documented in this report are preliminary and upon campground cleaning attendant reviewmay be revised to meet current compliance requirements. Vinay Correia MD 11/11/2024 10:03:56 AM This report has been signed electronically.Vinay Correia MD Number of Addenda: 0 Note Initiated On: 11/11/2024 9:40 AM Scope In: Scope Out: Endoscopy Department at [facility] - [address] [place] [phone] IMPRESSION: - The examined portion of the [...] Return to GI clinic as previously scheduled. Vinay Correia MD GI~PROCEDURE ORDERABLES Final Result [...] endoscopic findings is recommended. 9:57 AM EDT [facility] Gross Description A. Large Intestine, Rectum, recto-sigmoid biopsy: Labeled recto-sig LI rectum . Received in formalin are seven soft, caldera-red tissue fragments, ranging from 0.2 cm to 0.3 cm in greatest diameters, which are wrapped in paper and submitted in toto in one cassette, seven pieces, multiple levels on one slide. 9:57 AM EDT [facility] Disclaimer Unless otherwise specified, all tissue is 10% NB formalin fixed and paraffin embedded. 9:57 AM T [facility] Tissue Rectum structure / Unknown 11/11/2024 9:56 AM EDT 11/11/2024 11:32 AM EDT us Vinay Correia MD LAB PATHOLOGY ORDERABLES Lizet layton Result [facility] [address] [place] [address], [place] [phone] from Last 3 Months Insurance [employer] Care Teams Proof Technician Helper Relationship Specialty Start Date End Date Jah Storey MD [address] [place] [phone] PCP - General Internal Medicine 04/10/24
== END 2025-01-09 11:12 | disposition home or self-care (01) ==
LOC: HO.HPSW 10:38
PROVIDERS: PCP Internal Medicine; Visit Provider Nurse Practitioner Family
DX: R05.3 Chronic cough (principal); R09.82 Postnasal drip; Z91.09 Other allergy status, other than to drugs and biological substances
CPT/HCPCS: 99214